=== PATIENT | female | born 1990 | race Caucasian/White ===

== ENCOUNTER → 2023-08-24 12:26 | Outpatient (BNVA) | payer OTHER, SELFPAY | PROVIDERS: Visit Provider Physician Assistant Medical | DX: S00.93XA Contusion of unspecified part of head, initial encounter (principal); S40.011A Contusion of right shoulder, initial encounter; S20.229A Contusion of unspecified back wall of thorax, initial encounter; S46.811A Strain of other muscles, fascia and tendons at shoulder and upper arm level, right arm, initial encounter; W51.XXXA Accidental striking against or bumped into by another person, initial encounter; R51.9 Headache, unspecified | CPT/HCPCS: 73010; 73030; 99203 ==

== ENCOUNTER → 2023-08-27 11:11 | Outpatient (BNVA) | payer OTHER, SELFPAY | PROVIDERS: Visit Provider Physician Assistant Medical | DX: S00.93XA Contusion of unspecified part of head, initial encounter (principal); S46.811A Strain of other muscles, fascia and tendons at shoulder and upper arm level, right arm, initial encounter; R51.9 Headache, unspecified; S40.011A Contusion of right shoulder, initial encounter; S20.229A Contusion of unspecified back wall of thorax, initial encounter; X58.XXXA Exposure to other specified factors, initial encounter | CPT/HCPCS: 99213 ==

== ENCOUNTER → 2023-08-31 14:43 | Outpatient (BNVA) | payer OTHER, SELFPAY | PROVIDERS: PCP Nurse Practitioner Family; Visit Provider Physician Assistant Medical | DX: S00.93XA Contusion of unspecified part of head, initial encounter (principal); R51.9 Headache, unspecified; S46.811A Strain of other muscles, fascia and tendons at shoulder and upper arm level, right arm, initial encounter; S40.011A Contusion of right shoulder, initial encounter; S20.229A Contusion of unspecified back wall of thorax, initial encounter; W51.XXXA Accidental striking against or bumped into by another person, initial encounter | CPT/HCPCS: 99213 ==

== ENCOUNTER → 2023-09-04 11:42 | Outpatient (BNVA) | payer OTHER, SELFPAY | PROVIDERS: PCP Nurse Practitioner Family; Visit Provider Physician Assistant Medical | DX: S00.93XA Contusion of unspecified part of head, initial encounter (principal); R51.9 Headache, unspecified; S46.811A Strain of other muscles, fascia and tendons at shoulder and upper arm level, right arm, initial encounter; S40.011A Contusion of right shoulder, initial encounter; S20.224A Contusion of middle back wall of thorax, initial encounter; W51.XXXA Accidental striking against or bumped into by another person, initial encounter | CPT/HCPCS: 99213 ==

== ENCOUNTER → 2023-09-13 09:39 | Outpatient (BNVA) | payer OTHER, SELFPAY | PROVIDERS: PCP Nurse Practitioner Family; Visit Provider Physician Assistant Medical | DX: S00.93XA Contusion of unspecified part of head, initial encounter (principal); R51.9 Headache, unspecified; S46.811A Strain of other muscles, fascia and tendons at shoulder and upper arm level, right arm, initial encounter; S40.011A Contusion of right shoulder, initial encounter; S20.229A Contusion of unspecified back wall of thorax, initial encounter; W51.XXXA Accidental striking against or bumped into by another person, initial encounter | CPT/HCPCS: 99213 ==

== ENCOUNTER → 2023-09-20 13:10 | Outpatient (BNVA) | payer OTHER, SELFPAY | PROVIDERS: PCP Nurse Practitioner Family; Visit Provider Physician Assistant | DX: S00.93XD Contusion of unspecified part of head, subsequent encounter (principal); S46.811D Strain of other muscles, fascia and tendons at shoulder and upper arm level, right arm, subsequent encounter; S40.011D Contusion of right shoulder, subsequent encounter; S20.229D Contusion of unspecified back wall of thorax, subsequent encounter; W51.XXXD Accidental striking against or bumped into by another person, subsequent encounter | CPT/HCPCS: 99213 ==

== ENCOUNTER 2023-09-26 10:00 | Outpatient (RCR) | payer OTHER, MEDICAID, SELFPAY ==
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
--- NOTE | 2024-02-05 09:43 | MHC.PT.DC ---
[facility] [place] Office [place] Office [place] Office [address] Jolly Jin [address] [phone] F: [phone] F: [phone] F: [phone] F: [phone] Physical Therapy Discharge Report Diagnosis: trapezius strain Date of Surgery: Date of Evaluation: 08/30/23 Date of Discharge: 02/05/24 Treatments to Date: 6 Cancellations to Date: No Shows to Date: Discharge Status: Achieved Goals Independent with HEP Discharge Summary: Pt is a 33 yo female who was referred to PT following injury at work. Pt participated in 6 visits and overall improved her pain level from 8/10 to 3/10, and is I with HEP. Pt in agreement with D/C at this time. Thank you for this referral. Electronically signed by: Dorothy Ramírez PT, DPT Please sign and return to therapist. Thank you for your referral.
== END 2024-02-05 09:44 | disposition home or self-care (01) ==
LOC: HO.PT 10:00
PROVIDERS: PCP Nurse Practitioner Family; Visit Provider Physician Assistant Medical
DX: S06.9XAD Unspecified intracranial injury with loss of consciousness status unknown, subsequent encounter (principal); S46.811D Strain of other muscles, fascia and tendons at shoulder and upper arm level, right arm, subsequent encounter; S20.229D Contusion of unspecified back wall of thorax, subsequent encounter
CPT/HCPCS: 97110; 97140; 97161

== ENCOUNTER → 2023-10-01 09:28 | Outpatient (BNVA) | payer OTHER, SELFPAY | PROVIDERS: PCP Nurse Practitioner Family; Visit Provider Physician Assistant Medical | DX: F07.81 Postconcussional syndrome (principal); R51.9 Headache, unspecified; S46.811D Strain of other muscles, fascia and tendons at shoulder and upper arm level, right arm, subsequent encounter; S40.011D Contusion of right shoulder, subsequent encounter; S20.229D Contusion of unspecified back wall of thorax, subsequent encounter; W51.XXXD Accidental striking against or bumped into by another person, subsequent encounter | CPT/HCPCS: 99213 ==

== ENCOUNTER → 2023-10-22 09:01 | Outpatient (BNVA) | payer OTHER, SELFPAY | PROVIDERS: PCP Nurse Practitioner Family; Visit Provider Physician Assistant Medical | DX: S00.93XD Contusion of unspecified part of head, subsequent encounter (principal); R51.9 Headache, unspecified; S46.811D Strain of other muscles, fascia and tendons at shoulder and upper arm level, right arm, subsequent encounter; S40.011D Contusion of right shoulder, subsequent encounter; S29.012D Strain of muscle and tendon of back wall of thorax, subsequent encounter; W51.XXXD Accidental striking against or bumped into by another person, subsequent encounter | CPT/HCPCS: 99213 ==

== ENCOUNTER 2023-11-05 19:33 | Outpatient (REF) | payer OTHER, SELFPAY ==
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
== END 2023-11-05 19:34 | disposition home or self-care (01) ==
LOC: HO.MRI 19:33
PROVIDERS: PCP Nurse Practitioner Family; Visit Provider Internal Medicine
DX: S40.011A Contusion of right shoulder, initial encounter (principal)
CPT/HCPCS: 73221

== ENCOUNTER → 2023-11-12 09:41 | Outpatient (BNVA) | payer OTHER, SELFPAY | PROVIDERS: PCP Nurse Practitioner Family; Visit Provider Physician Assistant Medical | DX: S00.93XD Contusion of unspecified part of head, subsequent encounter (principal); S46.811D Strain of other muscles, fascia and tendons at shoulder and upper arm level, right arm, subsequent encounter; S40.011D Contusion of right shoulder, subsequent encounter; Y04.2XXD Assault by strike against or bumped into by another person, subsequent encounter; M24.811 Other specific joint derangements of right shoulder, not elsewhere classified; R51.9 Headache, unspecified | CPT/HCPCS: 99213 ==

== ENCOUNTER → 2023-11-16 11:12 | Outpatient (BNVA) | payer OTHER, SELFPAY | PROVIDERS: PCP Nurse Practitioner Family; Visit Provider Physician Assistant Medical | DX: F07.81 Postconcussional syndrome (principal); G43.909 Migraine, unspecified, not intractable, without status migrainosus; S40.011D Contusion of right shoulder, subsequent encounter; W51.XXXD Accidental striking against or bumped into by another person, subsequent encounter; M24.811 Other specific joint derangements of right shoulder, not elsewhere classified | CPT/HCPCS: 99213 ==

== ENCOUNTER → 2023-12-04 09:57 | Outpatient (BNVA) | payer OTHER, SELFPAY | PROVIDERS: PCP Nurse Practitioner Family; Visit Provider Physician Assistant Medical | DX: F07.81 Postconcussional syndrome (principal); G43.909 Migraine, unspecified, not intractable, without status migrainosus; M24.811 Other specific joint derangements of right shoulder, not elsewhere classified | CPT/HCPCS: 99213 ==

== ENCOUNTER 2023-12-11 10:45 | Outpatient (RCR) | payer OTHER, SELFPAY ==
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
== END 2023-12-18 13:33 | disposition home or self-care (01) ==
LOC: HO.SH 10:45
PROVIDERS: PCP Nurse Practitioner Family; Visit Provider Physician Assistant Medical
DX: S06.9XAD Unspecified intracranial injury with loss of consciousness status unknown, subsequent encounter (principal)
CPT/HCPCS: 96125

== ENCOUNTER → 2023-12-24 13:14 | Outpatient (BNVA) | payer OTHER, SELFPAY | PROVIDERS: PCP Nurse Practitioner Family; Visit Provider Physician Assistant Medical | DX: S00.93XD Contusion of unspecified part of head, subsequent encounter (principal); W51.XXXD Accidental striking against or bumped into by another person, subsequent encounter; G43.909 Migraine, unspecified, not intractable, without status migrainosus; M24.811 Other specific joint derangements of right shoulder, not elsewhere classified; M54.2 Cervicalgia | CPT/HCPCS: 99213 ==

== ENCOUNTER → 2024-01-07 13:01 | Outpatient (BNVA) | payer OTHER, SELFPAY | PROVIDERS: PCP Nurse Practitioner Family; Visit Provider Physician Assistant Medical | DX: S00.93XD Contusion of unspecified part of head, subsequent encounter (principal); W51.XXXD Accidental striking against or bumped into by another person, subsequent encounter; G43.909 Migraine, unspecified, not intractable, without status migrainosus; M24.811 Other specific joint derangements of right shoulder, not elsewhere classified; M50.322 Other cervical disc degeneration at C5-C6 level | CPT/HCPCS: 99213 ==

== ENCOUNTER → 2024-02-11 12:52 | Outpatient (BNVA) | payer OTHER, SELFPAY | PROVIDERS: PCP Nurse Practitioner Family; Visit Provider Physician Assistant Medical | DX: M25.511 Pain in right shoulder (principal); S00.93XD Contusion of unspecified part of head, subsequent encounter; S40.011D Contusion of right shoulder, subsequent encounter; S46.811D Strain of other muscles, fascia and tendons at shoulder and upper arm level, right arm, subsequent encounter; W51.XXXD Accidental striking against or bumped into by another person, subsequent encounter; G43.009 Migraine without aura, not intractable, without status migrainosus; M54.2 Cervicalgia | CPT/HCPCS: 99213 ==

== ENCOUNTER 2024-03-03 13:54 | Outpatient (AMB) | payer OTHER, SELFPAY ==
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
[2024-03-03 13:58] VITALS: BP 141/86; PULSE 117; RESP 15; O2SAT 97; BMI 31.2
== END 2024-03-03 14:30 | disposition home or self-care (01) ==
PROVIDERS: PCP Nurse Practitioner Family; Visit Provider Nurse Practitioner Family
DX: M25.511 Pain in right shoulder (principal); M54.2 Cervicalgia; G43.109 Migraine with aura, not intractable, without status migrainosus; M67.911 Unspecified disorder of synovium and tendon, right shoulder
CPT/HCPCS: 99204; G2211

== ENCOUNTER → 2024-03-03 13:54 | Outpatient (BNVA) | payer OTHER, SELFPAY | PROVIDERS: PCP Nurse Practitioner Family; Visit Provider Nurse Practitioner Family | DX: M25.511 Pain in right shoulder (principal); M54.2 Cervicalgia; G43.109 Migraine with aura, not intractable, without status migrainosus; M67.911 Unspecified disorder of synovium and tendon, right shoulder | CPT/HCPCS: 99202 ==

== ENCOUNTER → 2024-03-17 12:52 | Outpatient (BNVA) | payer OTHER, SELFPAY | PROVIDERS: PCP Nurse Practitioner Family; Visit Provider Physician Assistant Medical | DX: F07.81 Postconcussional syndrome (principal); G43.009 Migraine without aura, not intractable, without status migrainosus; M50.322 Other cervical disc degeneration at C5-C6 level; M24.811 Other specific joint derangements of right shoulder, not elsewhere classified | CPT/HCPCS: 99213 ==

== ENCOUNTER → 2024-03-20 09:10 | Outpatient (BNVA) | payer OTHER, SELFPAY | PROVIDERS: PCP Nurse Practitioner Family; Visit Provider Physician Assistant Medical | DX: S00.93XD Contusion of unspecified part of head, subsequent encounter (principal); S40.011D Contusion of right shoulder, subsequent encounter; W51.XXXD Accidental striking against or bumped into by another person, subsequent encounter; M50.322 Other cervical disc degeneration at C5-C6 level; F41.1 Generalized anxiety disorder; G43.009 Migraine without aura, not intractable, without status migrainosus; M24.811 Other specific joint derangements of right shoulder, not elsewhere classified | CPT/HCPCS: 99213 ==

== ENCOUNTER 2024-03-25 14:01 | Outpatient (AMB) | payer OTHER, SELFPAY ==
[2024-03-25 14:02] VITALS: BMI 31.2
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
== END 2024-03-25 14:27 | disposition home or self-care (01) ==
LOC: HO.PMC 14:01
PROVIDERS: PCP Nurse Practitioner Family; Visit Provider Nurse Practitioner Family
DX: M25.511 Pain in right shoulder (principal); M54.2 Cervicalgia; G43.109 Migraine with aura, not intractable, without status migrainosus; M67.911 Unspecified disorder of synovium and tendon, right shoulder; M50.20 Other cervical disc displacement, unspecified cervical region; M47.812 Spondylosis without myelopathy or radiculopathy, cervical region
CPT/HCPCS: 99214; G2211

== ENCOUNTER → 2024-03-25 14:01 | Outpatient (BNVA) | payer OTHER, SELFPAY | PROVIDERS: PCP Nurse Practitioner Family; Visit Provider Nurse Practitioner Family ==

== ENCOUNTER → 2024-04-17 09:48 | Outpatient (BNVA) | payer OTHER, SELFPAY | PROVIDERS: PCP Nurse Practitioner Family; Visit Provider Physician Assistant Medical | DX: S00.93XD Contusion of unspecified part of head, subsequent encounter (principal); W51.XXXD Accidental striking against or bumped into by another person, subsequent encounter; G43.009 Migraine without aura, not intractable, without status migrainosus; M50.322 Other cervical disc degeneration at C5-C6 level; M24.811 Other specific joint derangements of right shoulder, not elsewhere classified; F41.1 Generalized anxiety disorder; F43.0 Acute stress reaction | CPT/HCPCS: 99213 ==

== ENCOUNTER 2024-05-08 09:52 | Outpatient (AMB) | payer OTHER, SELFPAY ==
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
[2024-05-08 10:00] VITALS: BP 123/70; PULSE 65; O2SAT 99; BMI 28.9
== END 2024-05-08 10:27 | disposition home or self-care (01) ==
PROVIDERS: PCP Nurse Practitioner Family; Visit Provider Nurse Practitioner Family
DX: M47.812 Spondylosis without myelopathy or radiculopathy, cervical region (principal); M50.10 Cervical disc disorder with radiculopathy, unspecified cervical region
CPT/HCPCS: 99214; G2211

== ENCOUNTER → 2024-05-08 09:52 | Outpatient (BNVA) | payer OTHER, SELFPAY | PROVIDERS: PCP Nurse Practitioner Family; Visit Provider Nurse Practitioner Family | DX: M54.2 Cervicalgia (principal); M47.812 Spondylosis without myelopathy or radiculopathy, cervical region; M50.10 Cervical disc disorder with radiculopathy, unspecified cervical region | CPT/HCPCS: 99212 ==

== ENCOUNTER → 2024-05-19 10:03 | Outpatient (BNVA) | payer OTHER, SELFPAY | PROVIDERS: PCP Nurse Practitioner Family; Visit Provider Physician Assistant Medical | DX: S00.93XD Contusion of unspecified part of head, subsequent encounter (principal); S40.011D Contusion of right shoulder, subsequent encounter; W51.XXXD Accidental striking against or bumped into by another person, subsequent encounter; G43.109 Migraine with aura, not intractable, without status migrainosus; M24.811 Other specific joint derangements of right shoulder, not elsewhere classified; M50.322 Other cervical disc degeneration at C5-C6 level | CPT/HCPCS: 99213 ==

== ENCOUNTER 2024-05-29 07:36 | Outpatient (REF) | payer OTHER, SELFPAY ==
--- NOTE | ~2024-05-29 | FL_ITS ---
EXAMINATION: FL GUIDANCE ONLY HISTORY: M50.10 - Cervical disc disorder with radiculopathy, unspecified cervical... COMPARISON: None available. TECHNIQUE: Fluoroscopy time: 0.1 minutes. Cumulative Dose: 0.371 mGy. DAP: 0.72337 mGym2 Images: 2. FINDINGS: Images demonstrate a needle and contrast material in the left neck. FL/FL guidance in treatment room IMPRESSION: Fluoroscopy during procedure. Please see procedure report for additional information. Electronically signed by: Larry Thurman MD 05/29/2024 12:41 PM [facility]
== END 2024-05-29 07:37 | disposition home or self-care (01) ==
LOC: CF 07:36
PROVIDERS: Visit Provider Internal Medicine
DX: M50.10 Cervical disc disorder with radiculopathy, unspecified cervical region (principal)
CPT/HCPCS: 62321; J1100; J2003; Q9967

== ENCOUNTER 2024-05-29 10:58 | Outpatient (AMB) | payer OTHER, SELFPAY ==
[2024-05-29 11:09] VITALS: BP 150/77; PULSE 100; O2SAT 99; BMI 26.7
--- NOTE | 2024-05-29 11:09 | MHC.OFFVIS ---
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 Set Up And Lay Out Required: No Allergies Sulfa (Sulfonamide Antibiotics) Adverse Reaction (Severe, Verified 05/29/24 11:10) Rash Medication List - Last Reconciled 05/29/24 by Nancy Hernandez, BAND SALVAGER [id number] 50-325-40 mg 1 tab PO Q6H PRN dextroamphetamine-amphetamine 20 mg ER (Adderall XR) caps PO dextroamphetamine-amphetamine 30 mg ER (Adderall XR) 40 mg PO DAILY dextroamphetamine-amphetamine 5 mg (Adderall) 5 mg PO DAILY diclofenac sodium 1% (Arthritis Pain (diclofenac)) 4 grams topical QID PRN duloxetine 60 mg (2 x 30 mg) PO DAILY lidocaine 5% 1 patch topically 1 patch daily q 12 hours; leave on most painful area for up to 12 hrs lorazepam (Ativan) 1 mg PO ONCE magnesium oxide 400 mg PO DAILY meloxicam 15 mg PO DAILY methocarbamol 500 mg PO TID PRN 30 days riboflavin (vitamin B2) 400 mg (4 x 100 mg) PO DAILY HPI HPI Left C6-C7 interlaminar LAZARO/ Ativan: Details: Patient presents for scheduled procedure. Denies any recent cough, cold, infection, fever or other significant changes in medical history since last office visit. [facility] Medical History Anemia Myofascial neck pain Cervicalgia Right shoulder pain Migraine headache with aura Tubal ectopic ADHD Surgical History History of carpal tunnel release (~2017) History of appendectomy History of Social History Household Members: Children Housing: Apartment Alcohol intake: current Alcohol intake frequency: 3 or more drinks per day Alcohol type: beer Tobacco use type: Cigarette Cigarette Packs Per Day: 0.5 Physical Exam Vital Signs: Last Vital Signs Pulse 100 05/29/24 11:09 BP 150/77 H 02/13/25 11:09 Pulse Ox 99 05/29/24 11:09 Oxygen Delivery Method Room Air 05/29/24 11:09 BMI result Body Mass Index 26.7 Office Procedures AMB Joint Injection/Aspiration Joint Injection/Aspiration Details: Interlaminar epidural steroid injection, C6/7, Left parasaggital After obtaining written consent, pre-procedure blood pressure and heart rate were stable and recorded in the nursing record. The patient was placed in the prone position. The cervicothoracic area was widely prepped with chloraprep and draped in sterile fashion. Fluoroscopic guidance was used to identify the desired interlaminar space and for needle placement. Subcutaneous 0.5% lidocaine was used to anesthetize the skin overlying the target. A 20-gauge Clemente needle was advanced to the epidural space using loss of resistance to contrast technique under fluoroscopic AP and contralateral oblique views. There was no evidence of heme or CSF and no paresthesias were elicited with needle placement. Confirmation of epidural needle placement was performed with 1cc of omnipaque 180. Next 3 ml 0.5% lidocaine mixed with 10 mg dexamethasone was administered epidurally with no pain elicited on injection. The needle tract tubing was then cleared with 1 ml of 0.5% lidocaine. The needle was removed, skin cleansed and a sterile bandage was applied. The patient tolerated the procedure well and no complications were encountered. Following the procedure the patient's vital signs were stable. The patient was discharged home in good condition with post-procedural instructions. Time Out: Immediately prior to the procedure, the following was verbally confirmed that there is a signed consent form and that the correct patient, planned procedure, site and side are consistent with documentation and that necessary equipment and/or blood products are available prior to the start of the case. Complications: none EBL: <2 cc Coding 87738 - Cervical Epidural/Interlaminar with fluoroscopy Procedure code (CPT) selection complete Assessment & Plan Assessment & Plan (1) Herniation of cervical intervertebral disc with radiculopathy: Code(s): M50.10 - Cervical disc disorder with radiculopathy, unspecified cervical region Category: Medical Plan Patient is status post left C6-7 LAZARO. Patient tolerated procedure well and was discharged home in stable condition with discharge instructions. All questions were answered. We will follow-up via telephone or in clinic to assess response to therapy. A follow-up appointment was made during today's visit. Orders: Orders FL guidance in treatment room Today M50.10 - Cervical disc disorder with radiculopathy, unspecified cervical region Medications: New lorazepam (Ativan) Take 30 minutes prior to arrival to procedure 1 mg PO ONCE 1 tab 0RF anxiety Coding Level of Care Code Procedure Only Diagnoses Herniation of cervical intervertebral disc with radiculopathy M50.10 CPT Codes Coding - Joint 10: 56605 - Cervical Epidural/Interlaminar with fluoroscopy ([id number])
== END 2024-05-29 11:44 | disposition home or self-care (01) ==
LOC: HO.PMCPRC 10:58
PROVIDERS: PCP Nurse Practitioner Family; Visit Provider Internal Medicine
DX: M50.123 Cervical disc disorder at C6-C7 level with radiculopathy (principal)
CPT/HCPCS: 62321

== ENCOUNTER → 2024-06-09 09:58 | Outpatient (BNVA) | payer OTHER, SELFPAY | PROVIDERS: PCP Nurse Practitioner Family; Visit Provider Physician Assistant Medical | DX: F07.81 Postconcussional syndrome (principal); G43.909 Migraine, unspecified, not intractable, without status migrainosus; M50.322 Other cervical disc degeneration at C5-C6 level; S40.011D Contusion of right shoulder, subsequent encounter; S46.811D Strain of other muscles, fascia and tendons at shoulder and upper arm level, right arm, subsequent encounter; W51.XXXD Accidental striking against or bumped into by another person, subsequent encounter; M24.811 Other specific joint derangements of right shoulder, not elsewhere classified | CPT/HCPCS: 99213 ==

== ENCOUNTER 2024-06-26 11:02 | Outpatient (AMB) | payer OTHER, SELFPAY ==
[2024-06-26 11:14] VITALS: BP 135/75; PULSE 76; O2SAT 100; BMI 29.9
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
== END 2024-06-26 11:53 | disposition home or self-care (01) ==
LOC: HO.PMC 11:03
PROVIDERS: PCP Nurse Practitioner Family; Visit Provider Nurse Practitioner Family
DX: M50.10 Cervical disc disorder with radiculopathy, unspecified cervical region (principal); M25.511 Pain in right shoulder; M47.812 Spondylosis without myelopathy or radiculopathy, cervical region
CPT/HCPCS: 99213; G2211

== ENCOUNTER → 2024-06-26 11:02 | Outpatient (BNVA) | payer OTHER, SELFPAY | PROVIDERS: PCP Nurse Practitioner Family; Visit Provider Nurse Practitioner Family | DX: M50.10 Cervical disc disorder with radiculopathy, unspecified cervical region (principal); M25.511 Pain in right shoulder; M47.812 Spondylosis without myelopathy or radiculopathy, cervical region; Z98.890 Other specified postprocedural states | CPT/HCPCS: 99212 ==

== ENCOUNTER → 2024-07-29 09:46 | Outpatient (BNVA) | payer OTHER, SELFPAY | PROVIDERS: PCP Nurse Practitioner Family; Visit Provider Physician Assistant Medical | DX: S00.93XD Contusion of unspecified part of head, subsequent encounter (principal); S40.011D Contusion of right shoulder, subsequent encounter; S46.811D Strain of other muscles, fascia and tendons at shoulder and upper arm level, right arm, subsequent encounter; W51.XXXD Accidental striking against or bumped into by another person, subsequent encounter; M54.2 Cervicalgia | CPT/HCPCS: 99213 ==

== ENCOUNTER → 2024-08-25 10:06 | Outpatient (BNVA) | payer OTHER, SELFPAY | PROVIDERS: PCP Nurse Practitioner Family; Visit Provider Physician Assistant Medical | DX: S00.93XD Contusion of unspecified part of head, subsequent encounter (principal); M54.2 Cervicalgia; S46.911D Strain of unspecified muscle, fascia and tendon at shoulder and upper arm level, right arm, subsequent encounter; S46.811D Strain of other muscles, fascia and tendons at shoulder and upper arm level, right arm, subsequent encounter; W51.XXXD Accidental striking against or bumped into by another person, subsequent encounter; G44.86 Cervicogenic headache; F32.A Depression, unspecified | CPT/HCPCS: 99213 ==

== ENCOUNTER 2024-09-12 09:00 | Outpatient (RCR) | payer OTHER, SELFPAY ==
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
== END 2024-11-28 16:15 | disposition home or self-care (01) ==
LOC: HO.PT 09:00
PROVIDERS: PCP Nurse Practitioner Family; Visit Provider Physician Assistant Medical
DX: M54.2 Cervicalgia (principal)
CPT/HCPCS: 97110; 97140; 97162; 97530; 97535

== ENCOUNTER → 2024-10-07 08:08 | Outpatient (BNVA) | payer OTHER, SELFPAY | PROVIDERS: PCP Nurse Practitioner Family; Visit Provider Physician Assistant Medical | DX: S00.93XD Contusion of unspecified part of head, subsequent encounter (principal); S46.811D Strain of other muscles, fascia and tendons at shoulder and upper arm level, right arm, subsequent encounter; W51.XXXD Accidental striking against or bumped into by another person, subsequent encounter; M54.2 Cervicalgia | CPT/HCPCS: 99213 ==

== ENCOUNTER → 2024-11-20 08:58 | Outpatient (BNVA) | payer OTHER, SELFPAY | PROVIDERS: PCP Nurse Practitioner Family; Visit Provider Physician Assistant Medical | DX: S00.93XD Contusion of unspecified part of head, subsequent encounter (principal); S46.911D Strain of unspecified muscle, fascia and tendon at shoulder and upper arm level, right arm, subsequent encounter; S46.811D Strain of other muscles, fascia and tendons at shoulder and upper arm level, right arm, subsequent encounter; W51.XXXD Accidental striking against or bumped into by another person, subsequent encounter; M54.2 Cervicalgia | CPT/HCPCS: 99213 ==

== ENCOUNTER 2024-11-27 10:13 | Outpatient (AMB) | payer OTHER, SELFPAY ==
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
[2024-11-27 10:31] VITALS: BP 133/74; PULSE 90; O2SAT 100; BMI 27.0
--- OUTSIDE RECORDS SUMMARY | 2024-11-27 11:18 | XMS_ITS | Encounter Summary ---
Author Organization [facility] Address [address] [place] [address] Phone Care Team Providers Care Marker Maker Name Role Phone Shukri Ramirez MD Primary Care Provider [phone] Shukri Ramirez MD Unavailable [phone] Fran Bauer CANCER CENTER DIRECTOR Unavailable [phone] Fran Bauer CANCER CENTER DIRECTOR Unavailable [phone] Encounter Details Date Type Department Care Team (Late Contact Info) Description 01/13/2018 Procedure Pass OR Admitting Dept - Virtual Department [address] [place] [address] Social History Tobacco Use Types Packs/Day Years Used Date Smoking Tobacco: Former Smokeless Tobacco: Never Alcohol Use Standard Drinks/Week Comments No 0 (1 standard drink = 0.6 oz pur e alcohol) none with Comments No Sex and Gender Information Value Date Recorded Sex Assigned at Female 04/23/2017 9:38 AM EST Legal Sex Female 9:04 PM EDT Gender Identity Female 04/23/2017 9:38 AM EST Sexual Orientation Straight 04/23/2017 9: 38 AM EST 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 Not on file Not on lois e documented as of this encounter Plan of Treatment Upcoming Encounters Date Type Department Care Team (Late Contact Info) Description 03/20/2025 1:30 PM EST Office Visit [facility] Neurology [address] [place] [address] Eliezer Wood MD 22 [facility], [address] [place] [address] [email or web address] documented as of this encounter Visit Diagnoses Not on filedocumented in this encounter Additional Health Concerns Infection Onset Date Last Indicated Resolved Time CoV-Risk 12/18/2019 12/19/2019 01/01/2020 1:24 AM EDT CoV-Risk 05/26/2021 05/26/2021 06/05/2021 1:23 AM EST documented as of this encounter Care Teams Marker Maker Relationship Specialty Start Date End Date Shukri Ramirez MD [email or web address] PCP - General Internal Medicine 02/27/17 Shukri Ramirez MD [address] [place] [address] [email or web address] Insurance Assigned Provider 08/18/17 12/23/22 Fran Bauer [address] [address] Orthopedic Surgeon 07/04/24 07/31/24 Fran Bauer [address] [address] [employer] Social Work 08/25/24 documented as of this encounter Additional Source Comments The information contained in this document represents components of the legal health record. It is not the complete legal health record.[facility]
== END 2024-11-27 10:40 | disposition home or self-care (01) ==
LOC: HO.PMC 10:26
PROVIDERS: PCP Nurse Practitioner Family; Visit Provider Nurse Practitioner Family
DX: M54.2 Cervicalgia (principal); G44.86 Cervicogenic headache; M47.812 Spondylosis without myelopathy or radiculopathy, cervical region
CPT/HCPCS: 99214; G2211

== ENCOUNTER → 2024-11-27 10:13 | Outpatient (BNVA) | payer OTHER, SELFPAY | PROVIDERS: PCP Nurse Practitioner Family; Visit Provider Nurse Practitioner Family | DX: M54.2 Cervicalgia (principal); G44.86 Cervicogenic headache; M47.812 Spondylosis without myelopathy or radiculopathy, cervical region | CPT/HCPCS: 99212 ==

== ENCOUNTER 2024-12-25 06:22 | Outpatient (REF) | payer OTHER, SELFPAY ==
--- NOTE | ~2024-12-25 | FL_ITS ---
EXAMINATION: FL GUIDANCE ONLY HISTORY: M47.812 - Spondylosis without myelopathy or radiculopathy, cervical region COMPARISON: None available. TECHNIQUE: Fluoroscopy time: 0.1 minute. Cumulative Dose: 0.53 mGy. DAP: 0.28028 mGym2 Images: 2. FINDINGS: Fluoroscopic spot films of the cervical spine demonstrate needles and contrast material in place at 3 levels. FL/FL guidance in treatment room IMPRESSION: Fluoroscopy during procedure. Please see procedure report for additional information. Electronically signed by: Larry Thurman MD 12/25/2024 01:14 PM EDT
--- OUTSIDE RECORDS SUMMARY | 2024-12-25 06:24 | XMS_ITS | Encounter Summary ---
Author Organization [facility] Address [address] [place] [address] Phone Care Team Providers Care Lpn Instructor Name Role Phone Shukri Ramirez MD Primary Care Provider [phone] Edmundo Joseph MD Unavailable [phone] Shukri Ramirez MD Unavailable [phone] Fran Bauer BOOT REPAIRER Unavailable [phone] Fran Bauer Unavailable [phone] Encounter Details Date Type Department Care Team (Late Contact Info) Description 03/26/2017 Procedure Pass [facility] L&D Procedures [address] [place] [address] Social History Tobacco Use Types Packs/Day Years [...] 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 documented as of this encounter Visit Diagnoses Not on filedocumented in this encounter Additional Health Concerns Infection Onset Date Last Indicated Resolved Time CoV-Risk 12/18/2019 12/19/2019 01/01/2020 1:24 AM EDT CoV-Risk 05/26/2021 05/26/2021 06/05/2021 1:23 AM EST documented as of this encounter Care Teams Lpn Instructor Relationship Specialty Start Date End Date Shukri Ramirez MD [email or web address] PCP - General Internal Medicine 02/27/17 Edmundo Joseph MD [address] [place] [address] [email or web address] Insurance Assigned Provider 07/14/17 08/18/17 Shukri Ramirez MD [address] [place] [address] [email or web address] Insurance Assigned Provider 08/18/17 12/23/22 Fran Bauer [address] [address] [email or web address] Window/Distribution Clerk 07/04/24 07/31/24 Fran Bauer [address] [address] [email or web address] Social Work 08/25/24 documented as of this encounter Additional Source Comments The information contained in this document represents components of the legal health record. It is not the complete legal health record.[facility]
--- OUTSIDE RECORDS SUMMARY | 2024-12-25 06:24 | XMS_ITS | Encounter Summary ---
Author Organization [facility] Address [address] [place] [address] Phone Care Team Providers Care System Development Engineer Name Role Phone Shukri Ramirez MD Primary Care Provider [phone] Shukri Ramirez MD Unavailable [phone] Fran Bauer ADULT REMEDIAL EDUCATION INSTRUCTOR Unavailable [phone] Fran Bauer ADULT REMEDIAL EDUCATION INSTRUCTOR Unavailable [phone] Encounter Details Date Type Department Care Team (Late Contact Info) Description 01/13/2018 Procedure Pass OR Admitting Dept - Virtual Department [address] [place] [address] Social History Tobacco Use Types Packs/Day Years [...] 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 file Not on lois e documented as of this encounter Plan of Treatment Upcoming Encounters Date Type Department Care Team (Late Contact Info) Description 03/20/2025 1:30 PM EST Office Visit [facility] Neurology [address] [place] [address] Eliezer Wood MD 22 [facility], [address] [place] [address] [email or web address] documented as of this encounter Visit Diagnoses Not on filedocumented in this encounter Additional Health Concerns Infection Onset Date Last Indicated Resolved Time CoV-Risk 12/18/2019 12/19/2019 01/01/2020 1:24 AM EDT CoV-Risk 05/26/2021 05/26/2021 06/05/2021 1:23 AM EST documented as of this encounter Care Teams System Development Engineer Relationship Specialty Start Date End Date Shukri Ramirez MD [email or web address] PCP - General Internal Medicine 02/27/17 Shukri Ramirez MD [address] [place] [address] [email or web address] Insurance Assigned Provider 08/18/17 12/23/22 Fran Bauer [address] [address] Dewatering Filtering Supervisor 07/04/24 07/31/24 Fran Bauer [address] [address] iC[employer] Social Work 08/25/24 documented as of this encounter Additional Source Comments The information contained in this document represents components of the legal health record. It is not the complete legal health record.[facility]
--- OUTSIDE RECORDS SUMMARY | 2024-12-25 06:24 | XMS_ITS | Encounter Summary ---
Author Organization [facility] Address [address] [place] [address] [place] [address] Phone Care Team Providers Care Seafood Harvester Name Role Phone Shukri Ramirez MD Primary Care Provider [phone] Shukri Ramirez MD Unavailable [phone] Fran Bauer PIGGERY WORKER Unavailable [phone] Fran Bauer PIGGERY WORKER Unavailable [phone] Encounter Details Date Type Department Care Team (Late st Contact Info) Description 06/23/2020 Procedure Pass [facility] L&D Procedures [address] [place] [address] Social History Tobacco Use Types Packs/Day Years Used Date Smoking Tobacco: Former Cigarettes Q uit: 03/2016 Smokeless Tobacco: Never Alcohol Use Standard Drinks/Week Comments Not Currently 0 (1 standard drink = 0.6 oz pur e alcohol) none with Comments No Sex and Gender Information Value Date Recorded Sex Assigned at Female 04/23/2017 9:38 AM EST Legal Sex Female 9:04 PM EDT Gender Identity Female 04/23/2017 9:38 AM EST Sexual Orientation Straight 04/23/2017 9: 38 AM EST 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 Wish to be (Past 1 Month) No 06/23/2020 7:11 AM Trudi Preston RN 2. Non-Specific Active Suicidal Thoughts (Past 1 Month) No 06/23/2020 7:11 AM Trudi Prseton RN 6. Suicidal Behavior (Lifetime) No 06/23/2020 7:11 AM Trudi Preston RN documented as of this encounter Plan of Treatment Upcoming Encounters Date Type Department Care Team (Late st Contact Info) Description 03/20/2025 1:30 PM EST Office Visit [facility] Neurology [address] [place] [address] Eliezer Wood MD [address] [place] [address], [address] [place] [address] [email or web address] documented as of this encounter Visit Diagnoses Not on filedocumented in this encounter Additional Health Concerns Infection Onset Date Last Indicated Resolved Time CoV-Risk 05/26/2021 05/26/2021 06/05/2021 1:23 AM EST documented as of this encounter Care Teams Seafood Harvester Relationship Specialty Start Date End Date Shukri Ramirez MD PCP - General Internal Medicine 02/27/17 Shukri Ramirez MD [address] [place] [address] Insurance Assigned Provider 08/18/17 12/23/22 Fran Bauer LICSW [address] [place] [address] [email or web address] Program/Music Director 07/04/24 07/31/24 Fran Bauer, PIGGERY WORKER [address] [place] [address] [facility] 08/25/24 documented as of this encounter Additional Source Comments The information contained in this document represents components of the legal health record. It is not the complete legal health record.[facility]
--- OUTSIDE RECORDS SUMMARY | 2024-12-25 06:24 | XMS_ITS | Encounter Summary ---
Author Organization [facility] Address [address] [place] [phone] Phone Care Team Providers Care Muffler Tender Name Role Phone Shukri Ramirez MD Primary Care Provider [phone] Shukri Ramirez MD Unavailable [phone] Fran Bauer AQUACULTURE FARMER Unavailable [phone] Fran Bauer AQUACULTURE FARMER Unavailable [phone] Encounter Details Date Type Department Care Team (Late Contact Info) Description 04/11/2019 Procedure Pass OR Admitting Dept - Virtual Department [address] [place] [id number] Social History Tobacco Use Types Packs/Day Years Used Date Smoking Tobacco: Former Smokeless Tobacco: Never Alcohol Use Standard Drinks/Week Comments No 0 (1 standard drink = 0.6 oz pur e alcohol) none with Comments Yes Sex and Gender Information Value Date Recorded Sex Assigned at Female 04/23/2017 9:38 AM EST Legal Sex Female 9:04 PM EDT Gender Identity Female 04/23/2017 9:38 AM EST Sexual Orientation Straight 04/23/2017 9: 38 AM EST 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 on file Not on file Not on lois e documented as of this encounter Plan of Treatment Upcoming Encounters Date Type Department Care Team (Late Contact Info) Description 03/20/2025 1:30 PM EST Office Visit [facility] Neurology [address] [place] [address] Eliezer Wood MD [address] [facility], [address] [place] [address] [email or web address] documented as of this encounter Visit Diagnoses Not on filedocumented in this encounter Additional Health Concerns Infection Onset Date Last Indicated Resolved Time CoV-Risk 12/18/2019 12/19/2019 01/01/2020 1:24 AM EDT CoV-Risk 05/26/2021 05/26/2021 06/05/2021 1:23 AM EST documented as of this encounter Care Teams Muffler Tender Relationship Specialty Start Date End Date Shukri Ramirez MD [email or web address] PCP - General Internal Medicine 02/27/17 Shukri Ramirez MD [address] [place] [id number] [email or web address] Insurance Assigned Provider 08/18/17 12/23/22 Fran Bauer [address] [address] [employer] 07/04/24 07/31/24 Fran Bauer [address] [address] [employer] Social Work 08/25/24 documented as of this encounter Additional Source Comments The information contained in this document represents components of the legal health record. It is not the complete legal health record.[facility]
--- OUTSIDE RECORDS SUMMARY | 2024-12-25 06:24 | XMS_ITS | Encounter Summary ---
Author Organization [facility] Address [address] [place] [address] [place] [address] Phone Care Team Providers Care Brokerage Coordinator Name Role Phone Shukri Ramirez MD Primary Care Provider [phone] Shukri Ramirez MD Unavailable [phone] Fran Bauer BIOPSYCHOLOGIST Unavailable [phone] Fran Bauer BIOPSYCHOLOGIST Unavailable [phone] Encounter Details Date Type Department Care Team (Late st Contact Info) Description 01/13/2018 Procedure Pass 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 Not on file Not on lois e documented as of this encounter Plan of Treatment Upcoming Encounters Date Type Department Care Team (Late st Contact Info) Description 03/20/2025 1:30 PM EST Office Visit [facility] Neurology [address] [place] [address] Eliezer Wood MD 22 [facility], [address] [place] [address] [email or web address] documented as of this encounter Visit Diagnoses Not on filedocumented in this encounter Additional Health Concerns Infection Onset Date Last Indicated Resolved Time CoV-Risk 12/18/2019 12/19/2019 01/01/2020 1:24 AM EDT CoV-Risk 05/26/2021 05/26/2021 06/05/2021 1:23 AM EST documented as of this encounter Care Teams Brokerage Coordinator Relationship Specialty Start Date End Date Shukri Ramirez MD [email or web address] PCP - General Internal Medicine 02/27/17 Shukri Ramirez MD [address] [place] [phone] Insurance Assigned Provider 08/18/17 12/23/22 Fran Bauer [address] [address] Transition Nurse 07/04/24 07/31/24 Fran Bauer [address] [address] [employer] Social Work 08/25/24 documented as of this encounter Additional Source Comments The information contained in this document represents components of the legal health record. It is not the complete legal health record.[facility]
--- OUTSIDE RECORDS SUMMARY | 2024-12-25 06:24 | XMS_ITS | Clinical Summary ---
Author Organization [facility] Address [address] [place] [phone] Phone Care Team Providers Care Food Demonstrator Name Role Phone Shukri Ramirez MD Primary Care Provider [phone] Fran Bauer ANTIQUE FINISHER Unavailable [phone] Allergies Active Allergy Reactions Criticality Noted Date Comments Sulfa (Sulfonamide Antibiotics) Rash Low 02/14 Medications cetirizine (ZYRTEC) 10 MG tablet Take 10 mg by mouth daily. Active ibuprofen (ADVIL,MOTRIN) 600 MG tablet Take 1 tablet (600 mg total) by mouth every 6 (six) hours. X 2 days then Q6 hours prn 40 tablet 1 06/24/2020 Active ADDERALL XR 20 mg 24 hr capsule Take 20 mg by mouth 2 (two) times a day. 01/03/2022 Active dextroamphetami ne-amphetamine (ADDERALL) 5 mg Tab TAKE 1 TABLET BY MOUTH EVERY DAY AT NOON FOR 14 DAYS 01/17/2022 Active ferrous sulfate 325 mg (65 mg [place] iron) tablet Take 325 mg by mouth daily with breakfast. 08/20/2024 Active lurasidone (LATUDA) 40 mg tablet Take 40 mg by mouth daily with dinner. 09/15/2024 Active propranoloL (INDERAL LA) 60 mg 24 hr capsule Take 60 mg by mouth daily. 09/17/2024 Active cyanocobalamin, vitamin B-12, (VITAMIN B-12 INJ) Inject as directed every 30 (thirty) days. Active Active Problems Patient Care Coordination No te Formatting of this note migh t be different from the original. Patient is high risk for these reasons: Multiple health conditions; housing stressors. Living Situation: Patient is currently staying with her children at her sister's place in [place]. Some of the children stay part-time at their father's house down the street. Patient is in process of screening for public family housing. Functional Status (ADL's/iADLs): Independent. Family/Social Supports: Identifies supportive sister, friend, and boyfriend. Goals of Care (HCP/Molst): Has HCP on file in [facility] and [facility]. Community Supports (e.g. VNA, DME Vendors, Elder Services): [place] presc[place] [facility] Transportation: Friends and family provide help with rides. Medication Management System/Specialized Pharmacy Needs: Picks up and manages medications independently. 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 Has SNAP benefits. Other Supports and Care Needs: Stable housing. Problem Noted Date Diagnosed Date ADHD (attention deficit hyperactivity disorder) 02/08/2022 Pelvic pain 01/16/2022 Overview (02/08/2022): Right sided. Normal ovaries on US. Uterus with some findings suggestive of adenomyosis. During C/S, noted to have increased pelvic venous congestion on R. Discussed options for hormonal manipulation, laparoscopy, hysterectomy. She will consider. Assessment & Plan (01/16/2022 12:20 PM EDT): Chronic problem that is getting worse over time. Recommend updated pelvic US (ordered). Discussed intra op finding of dilated vessels in the right adnexa - unclear clinical significance. Briefly discussed ovulatory suppression with hormonal contraception. Barbara strongly wishes to avoid this option. She has an annual scheduled later this month - recommend changing this appointment to a follow up visit to discuss findings and plan of care. BMI 40.0-44.9, adult 06/23/2020 Overview (06/23/2020): Lovenox PP for DVT prophylaxis Anxiety 10/31/2019 Overview (10/31/2019): Using venlafaxine prescribed by PCP She has life stresses in her family Counseling done; she can consider taper with PCP if desires Migraine 07/16/2017 Resolved Problems Problem Noted Date Diagnosed Date Resolved Date Normal , unspecified trimester 06/23/2020 08/03/2020 Hyperemesis gravidarum 11/28/201901/19 Overview (11/28/2019): Responded to dose of reglan and IV fluids Request for sterilization 10/31/2019 Overview (05/04/2020): Requests on 10/31/19 for tubal ligation with [facility] consent signed 05/04/2020 Assessment & Plan (02/11/2020 4:15 PM EDT): Will sign [employer] papers at next visit. Supervision of other normal , antepartum 10/31/2019 08/03/2020 Overview (05/31/2020): MD Cantrell OB-CMI score has been filled out for this encounter. Rh NEG- rhogam at 7 weeks for bleeding and at 28 weeks RAP GC/Chlam neg PAP 07/2017 normal Tdap * Flu done Hgb 12.8 GTT 77 28 wk Repeat RPR not done GBS * PPBC TL [facility] signed 05/04/20 screening normal first trimester screen/AFP Assessment & Plan (05/21/2020 4:53 PM EST): She notes good movement. She denies any vaginal bleeding, leakage of fluid or regular contractions. However, she does notice pain in and on the right side of her abdomen which is pain that she had even prior to the . She has had this intermittent pain since her last . She has no other systemic symptoms including nausea, vomiting, fevers or chills. She had a previous work-up for this pain including imaging studies which were negative. I explained at that time and today that it could very well be related to scar tissue. She was instructed to call us if she has any symptoms suggestive of labor. Assessment & Plan (04/21/2020 6:08 PM EST): She notes good movement. She denies any vaginal bleeding, LOF or regular contractions. She notes that she is much more comfortable with this than with her previous pregnancies. Otherwise, she is doing fine. She plans on Tdap at the next visit. Assessment & Plan (02/11/2020 4:15 PM EDT): She is feeling the baby move. She denies any vaginal bleeding or LOF. Overall, she is doing well. Encounter for prophylactic a dministration of RhoGAM 04/19/2019 05/06/2019 Rh negative state in antepar bonnie period, first trimester 04/10/2019 05/06/2019 Assessment & Plan (04/10/2019 6:01 PM EST): Reports receiving Rhogam 5 days ago Irregular menses 01/21/2018 05/06/2019 Assessment & Plan (01/21/2018 11:48 AM EDT): Will try levonorgestrel pill as recalls doing well on same in past. If needed could try 35mcg pill in future if breakthrough bleeding persists. Advised trial for 3 mos and if btb not resolving RTO for further evaluation and alternatives. Due for routine exam in 07/2018 Appendicitis 01/14/2018 01/22/2018 Appendicitis 01/13/2018 01/14/2018 Previous section 07/16/2017 Overview (05/04/2020): Plans for repeat C/S; case scheduled Assessment & Plan (05/21/2020 4:54 PM EST): Repeat with tubal plan. Tubal papers were already signed. Assessment & Plan (04/21/2020 6:08 PM EST): Her repeat is already been scheduled and she is planning a tubal at the same time in [facility] papers already been signed. Assessment & Plan (02/11/2020 4:16 PM EDT): Will request date for at next visit. Postoperative abdominal pain 04/12/2017 07/16/2017 Overview (04/20/2017): There is no clinical evidence of infection Appears more consistent with normal healing process Assessment & Plan (04/20/2017 8:55 PM EST): Consulted with Dr Wilkes - we discussed options for this patient - continued decreased activity and ibuprofen 600 mg q 6 hrs around the clock or considering a course of antibiotics. Considering that there is little evidence of endometritis, will hold of on antibiotics at this time. Discussed with Barbara and she will take Ibuprofen 600 mg q 6 hrs Counseled to call with fever/chills, severe nauesea/vomiting, persistent pain/tenderness Return in 1 wk for reeval Assessment & Plan (04/12/2017 3:05 PM EST): Reduce activity Wear abdominal binder Follow up in 1 wk High-risk in third trimester 03/21/2017 07/16/2017 Rh negative state in antepartum period 02/23/2017 07/16/2017 Assessment & Plan (02/23/2017 4:22 PM EST): Rhogam given 01/15/17 Will need rhogam work up PP Previous delivery a ffecting 02/23/2017 07/16/2017 Assessment & Plan (02/23/2017 4:22 PM EST): Desires repeat History of shoulder dystocia in prior , currently 02/23/2017 07/16/2017 Assessment & Plan (03/26/2017 6:14 AM EST): Repeat C sectionplanned Assessment & Plan (02/23/2017 4:23 PM EST): Has opted for delivery Encounters Date Type Department Care Team Description 12/18/2024 Patient Outreach [facility] [address] [place] [address] Fran Bauer LICSW iCMP Care Plan Update (iCMP Care Plan Update) 12/03/2024 Patient Outreach [facility] [address] [place] [phone] Fran Bauer LICSW iCMP Care Plan Update (iCMP Care Plan Update); Care Coordination (iCMP Full Service Vending Driver Outreach) 11/18/2024 Patient Outreach [facility] [address] [place] [phone] Fran Bauer LICSW iCMP Care Plan Update (iCMP Care Plan Update); Care Coordination (iCMP Full Service Vending Driver Outreach) 11/04/2024 Patient Outreach [facility] [address] [place] [phone] Fran Bauer LICSW iCMP Care Plan Update (iCMP Care Plan Update); Care Coordination (iCMP Full Service Vending Driver Outreach) 10/28/2024 Patient Outreach [facility] [address] [place] [phone] Fran Bauer LICSW Care Coordination (iCMP Full Service Vending Driver Outreach); iCMP Care Plan Update (iCMP Care Plan Update) 10/21/2024 Patient Outreach [facility] [address] [place] [phone] Fran Bauer LICSW Care Coordination ([facility] Full Service Vending Driver Outreach); iCMP Care Plan Update (iCMP Care Plan Update) 10/14/2024 Patient Outreach [facility] [address] [place] [phone] Fran Bauer LICSW Care Coordination (iC[employer] Full Service Vending Driver Outreach); iCMP Care Plan Update (iCMP Care Plan Update) 09/30/2024 2:03 PM EDT - 09/30/2024 11:59 PM EDT Hospital Encounter [facility] [address] [place] [address] Geovany Aguirre MD Discharge Disposition: Home or Self Care 09/30/2024 Patient Outreach [facility] [address] [place] [phone] Fran Bauer LICSW Care Coordination ([facility] Full Service Vending Driver Outreach); iCMP Care Plan Update (iCMP Care Plan Update) 09/26/2024 4:30 PM EDT Office Visit [facility] [address] [place] [address] [place] [address] Geovany Aguirre MD Encounter for annual routine gynecological examination (Primary Dx); Screening for cervical cancer; Screening for STD (sexually transmitted disease) from Last 3 Months Immunizations Immunization Administration Dates Next Due Hepatitis B, unspecified formulation 06/03/2002, 01/01/2002,11/27/2001 INFLUENZA, SPLIT VIRUS, TRIVALENT PF 05/27/2014 Influenza Quadrivalent Prese rvative Free IM 01/17/2022,04/06/2021,01/20/2020,2017,01/26/2017 Rho (D) Immune Globulin 06/24/2020,04/07,11/14/2019,2018,03/26/2017,01/15/2017 Td, unspecified formulation 11/27/2001 Tdap 05/04/2020,02/23/2017,09/14/2010 Family History Medical History Relation Comments Crohn's disease Maternal Aunt Thyroid disease Maternal Aunt Diabetes Maternal Grandfather Thyroid disease Maternal Grandmother Hypertension Mother Relation Status Comments Brother Alive Daughter Alive Father Alive Maternal Aunt Maternal Grandfather Maternal Grandmother Mother Alive Sister Alive Son Alive Social History Tobacco Use Types Packs/Day Years Used Date Smoking Tobacco: Former Cigarettes Q uit: 03/2016 Smokeless Tobacco: Never Tobacco Cessation:Counseling Given: Not Answered Alcohol Use Standard Drinks/Week Comments Yes 1 (1 standard drink = 0.6 oz pure alcohol) Drinks 1 beer every once in a while. Education Answer Date Recorded Are you interested in more education? Not on lois e 08/11/2022 Are you concerned about learning? Not on file 08/11/2022 No 08/11/2022 No 08/11/2022 Digital Access Answer Date Recorded No 09/08/2022 No 09/08/2022 Reliable internet access at home? Not on file 09/08/2022 Device with a working camera? 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 Not on file Not on fi le Last Filed Vital Signs Vital Sign Reading Time Taken Comments Blood Pressure 118/76 09/26/2024 4:36 PM EDT Pulse 69 05/26/2021 12:31 PM EST Temperature 35.7 C (96.3 F) 05/26/2021 12:31 PM EST Respiratory Rate 20 05/26/2021 12:31 PM EST Oxygen Saturation 97% 05/26/2021 12:31 PM EST Inhaled Oxygen Concentration - - Weight 67.1 kg (148 lb) 09/26/2024 4:36 PM EDT Height 157.5 cm (5' 2 ) 09/26/2024 4:36 PM EDT Body Mass Index 27.07 09/26/2024 4:36 PM EDT Plan of Treatment Upcoming Encounters Date Type Department Care Team (Late st Contact Info) Description 03/20/2025 1:30 PM EST Office Visit [facility] Neurology [address] [place] [address] Eliezer Wood MD [address] [facility] [place] [address] [email or web address] Health Maintenance Due Date Last Done Comments SMOKING Hx and SMOKELESS TOBACCO SCREENING 2002 SCREENING FOR DIABETES 2024 05/26/2021, 2016 REPEAT PHQ 10/03/2024 09/02/2024, 09/02/2024 INFLUENZA VACCINE (#1) 2024 , 04/06/2021, 01/20/2020, Additional history exists COVID-19 VACCINE ( season) 2024 04/06/2021, 07/19/2020, 06/19/2020 PAP SMEAR 01/12/2025 01/12/2022, 04/05/2017, 07/16/2017, Additional history exists DEPRESSION SCREENING 09/02/2025 09/02/2024, 09/03/19 25 Adult Td,Tdap Booster 05/04/2030 05/04/2020 , 02/23/2017, 09/14/2010, Additional history exists HEPATITIS C SCREENING Completed 09/30/2024 , 12/23/2019, 12/23/2019 HIV ONE-TIME SCREENING (18-65 YEARS) Completed 09/30/2024 HEPATITIS A VACCINES Aged Out No long er eligible based on patient's age to complete this topic HIB VACCINES Aged Out No longer eligi ble based on patient's age to complete this topic MENINGOCOCCAL VACCINES (ACWY) Aged Out No longer eligible based on patient's age to complete this topic MENINGOCOCCAL VACCINES (B) Aged Out N o longer eligible based on patient's age to complete this topic PNEUMOCOCCAL VACCINES (0-49 years) Aged Out No longer eligible based on patient's age to complete this topic Medical Devices Not on file Procedures Procedure Name Priority Date/Time Associated Diagnosis Comments SYPHILIS ANTIBODY SCREEN ASSAY Routine 09/30/2024 2:27 PM EDT Screening for STD (sexually transmitted disease) HEPATITIS B SURFACE ANTIGEN Routine 09/30/2024 2:27 PM EDT Screening for STD (sexually transmitted disease) HEPATITIS C ANTIBODY, QUALITATIVE Routine 09/30/2024 2:27 PM EDT Screening for STD (sexually transmitted disease) HIV-1/2 ANTIGEN/ANTIBODY Routine 09/30/2024 2:27 PM EDT Screening for STD (sexually transmitted disease) HSV type 1,2, antibody, IgG Routine 09/30/2024 2:27 PM EDT Screening for STD (sexually transmitted disease) CHLAMYDIA TRACHOMATIS AND NEISSERIA GONORRHOEAE NUCLEIC ACID DETECTION Routine 09/26/2024 5:06 PM EDT Screening for STD (sexually transmitted disease) PAP TEST Routine 01/12/2022 12:00 AM EDT from Last 3 Months or Most Recently Relevant to Health Maintenance Results * HSV type 1,2, antibody, IgG (09/30/2024 2:27 PM EDT) Pathologist [facility] HSV 1 Ab, IgG Negative Negative [facility] HSV TYPE 2 AB, IGG Negative Negative [facility] [address] Blood 09/30/2024 2:27 PM EDT 09/30/2024 2:29 PM EDT Geovany Aguirre MD LAB BLOOD ORDERABLES Final Re sult [facility] [place] [address] * HIV-1/2 antigen/antibody (09/30/2024 2:27 PM EDT) Pathologist [facility] HIV-1/2 Antigen/Antibo dy NON-REACTI VE NON-REACTI VE [facility] Blood 09/30/2024 2:27 PM EDT 09/30/2024 2:29 PM EDT Geovany Aguirre MD LAB BLOOD ORDERABLES Final Re sult Performing Organization Address [facility]/ZIP Co de Phone Number [address] [address] * Hepatitis C antibody, qualitative (09/30/2024 2:27 PM EDT) Pathologist [facility] HCV NON-REACTIV E NON-REACTI VE [facility] Blood 09/30/2024 2:27 PM EDT 09/30/2024 2:28 PM EDT Geovany Aguirre MD LAB BLOOD ORDERABLES Final Re sult Performing Organization Address [facility]/ZIP Co de Phone Number [address] [address] * Syphilis antibody screen (09/30/2024 2:27 PM EDT) Pathologist [facility] RPR NON-REACTIV E NON-REACTI VE [facility] Blood 09/30/2024 2:27 PM EDT 09/30/2024 2:28 PM EDT Geovany Aguirre MD LAB BLOOD ORDERABLES Final Re sult Performing Organization Address City/[facility]/ZIP Co de Phone Number [address] [address] * Hepatitis B surface antigen (09/30/2024 2:27 PM EDT) HBV SURFACE ANTIGEN NON-REACTI VE NON-REACTI VE [facility] Blood 09/30/2024 2:27 PM EDT 09/30/2024 2:28 PM EDT Geovany Aguirre MD LAB BLOOD ORDERABLES Final Re sult Performing Organization Address [facility] Co de Phone Number [address] [address] * Chlamydia trachomatis and Neisseria gonorrhoeae Nucleic Acid Amplification (09/26/2024 5:06 PM EDT) CHLAMYDIA TRACHOMATIS Not Detected Not Detected [facility] NEISERIA GONORRHOEAE Not Detected Not Detected [facility] SPECIMEN TYPE ENDOCERVICAL TRACK LAYING SUPERVISOR [facility] Other (Endocervical) 09/26/2024 5:06 PM EDT 09/26/2024 6:17 PM EDT Geovany Aguirre MD NON CULTURE MICROBIOLOGY Sole l Result Performing Organization Address [facility]/ZIP Co de Phone Number [address] [address] * Pap Smear (01/12/2022 12:00 AM EDT) 01/12/2022 01/13/2022 9:1 1 AM EDT Narrative SEE NARRATIVE - 01/20/2022 10:32 AM EDT [address] [address] Cardroom Drawing Runner: Randee Dean MD MARINE SERVICE STATION ATTENDANT Cytology Report FINAL DIAGNOSIS A. PAP SMEAR (SUREPATH) CE: SPECIMEN ADEQUACY: Satisfactory for evaluation; transformation zone present. INTERPRETATION: NEGATIVE FOR INTRAEPITHELIAL LESION OR MALIGNANCY. Electronically Signed Out By: ELIU Weir(ASCP) The Pap test is a screening test primarily for squamous cancers and precursors and has associated false-negative and false-positive results. New technologies such as liquid-based preparations may decrease but will not eliminate all false-negative results. Regular sampling and follow-up of unexplained clinical signs and symptoms are recommended to minimize false negative results. PROCEDURES/ADDENDA HPV Testing (Requested) Ordered Date: 01/13/2022 A. PAP SMEAR (SUREPATH) CE: Human Papilloma Virus Test Negative for high-risk human papillomavirus types 16, 18, 45 and the Other high risk probe set (Includes 31, 33, 35, 39, 51, 52, 56, 58, 59, 66, 68) by [employer] HR-HPV analysis. Clinical correlation is advised. This HPV test was performed at [facility], [address] [place] [address]. This test has been FDA approved for SurePath cervical cytology specimens. The accuracy and precision of this test for all other specimen sources has been verified in the Cytopathology Laboratory of the [facility] and has not been cleared or approved by the U.S. Food and Drug Administration. Clinical correlation is advised. CLINICAL HISTORY Date of Last Menstrual Period: 12-23-2021 Other Clinical Conditions: Screening Pap SPECIMEN SOURCE A: PAP SMEAR (SUREPATH) CE Patient Name: BARBARA ARANA : 1990 (Age: 31) Sex: F Institution: [facility] Location: [facility] Date of Collection: 01/12/2022 Date of Reported: 01/20/2022 10:32 Results to: Caitlin Hidalgo MD us Caitlin Hidalgo MD CYTOLOGY ORDERABLES Final Res ult SEE NARRATIVE from Last 3 Months or Most Recently Relevant to Health Maintenance Insurance , [address] [address] [facility] , [address] [address] [facility] , [facility] [address] [place] [address] [facility] , [id number] [place] [address] ACO , [phone] [place], [place] [address] ACO , [address] [address] [facility] Advance Directives For more information, please contact: [phone] (9AM - 5PM [facility], Sunday-Sunday) Documents on File Type Date Recorded Patient Research Attorney Expl anation Healthcare Proxy 09/02/2024 12:55 PM [facility] Care Proxy - [place] * Full Code (Latest Code Status on File) Date Activated Date Inactivated Comments 06/23/2020 9:45 AM Question Answer Comments Code Status Confirmed With: Patient * Full Code Date Activated Date Inactivated Comments 06/23/2020 5:40 AM 06/23/2020 9:45 AM Question Answer Comments Code Status Confirmed With: Patient * Full Code Date Activated Date Inactivated Comments 02/17/2020 7:28 AM 06/23/2020 5:29 AM Question Answer Comments Code Status Confirmed With: Patient * Full Code (Presumed) Date Activated Date Inactivated Comments 11/28/2019 2:06 PM 02/17/2020 7:07 AM * Full Code (Presumed) Date Activated Date Inactivated Comments 04/11/2019 11:03 AM 04/11/2019 6:34 PM Healthcare Agents on File Name Relationship Healthcare Agent Relationship Communication Obdulia Salazaraire Mother .Primary Heal th Care Agent (Proxy form on file) Care Teams Food Demonstrator Relationship Specialty Start Date End Date Shukri Ramirez MD [email or web address] PCP - General Internal Medicine 02/27/17 Fran Bauer LICSW [address] [place] [id number] [email or web address] iCMP Social Work 08/25/24 Additional Source Comments The information contained in this document represents components of the legal health record. It is not the complete legal health record.[facility]
== END 2024-12-25 06:23 | disposition home or self-care (01) ==
LOC: CF 06:22
PROVIDERS: Visit Provider Internal Medicine
DX: Z13.89 Encounter for screening for other disorder (principal)

== ENCOUNTER 2024-12-25 12:07 | Outpatient (AMB) | payer OTHER, SELFPAY ==
[2024-12-25 12:13] VITALS: BP 127/59; PULSE 87; RESP 16; O2SAT 100; BMI 27.0
--- NOTE | 2024-12-25 12:13 | MHC.OFFVIS ---
Vital Signs 12/25/24 12:13 12/25/24 12:57 Height 5 ft 1 in Weight 143 lb BMI 27.0 BP 127/59 L 106/59 L Blood Pressure Location Lt brachial Lt brachial Position Sitting Sitting Respiration 16 16 Pulse 87 80 Pulse Source Pulse Oximeter Pulse Oximeter Pulse Oximetry (%) 100 100 Oxygen Delivery Method Room Air Room Air Intake Visit Reasons: Bilateral Diagnostic C5-C6-C7 MBB/ Ativan Physician Specialist Required: No Allergies Sulfa (Sulfonamide Antibiotics) Adverse Reaction (Severe, Verified 12/29/24 11:06) Rash Medication List - Last Reconciled 12/25/24 by Steffi Cedeno LPN albuterol sulfate 90 mcg/actuation (Ventolin HFA) inhalation uqkjnunkjc-tndfeqndxrmqc-hstt 50-325-40 mg 1 tab PO Q6H PRN dextroamphetamine-amphetamine 20 mg ER (Adderall XR) caps PO dextroamphetamine-amphetamine 30 mg ER (Adderall XR) 40 mg PO DAILY dextroamphetamine-amphetamine 5 mg (Adderall) 5 mg PO DAILY diclofenac sodium 1% (Arthritis Pain (diclofenac)) 4 grams topical QID PRN duloxetine 60 mg (2 x 30 mg) PO DAILY ferrous sulfate mg PO DAILY lidocaine 5% 1 patch topically 1 patch daily q 12 hours; leave on most painful area for up to 12 hrs lorazepam (Ativan) 1 mg PO ONCE lurasidone 40 mg PO DAILY magnesium oxide 400 mg PO DAILY meloxicam 15 mg PO DAILY methocarbamol 500 mg PO TID PRN 30 days propranolol ER 60 mg PO DAILY riboflavin (vitamin B2) 400 mg (4 x 100 mg) PO DAILY HPI HPI Bilateral Diagnostic C5-C6-C7 MBB/ Ativan: Details: Patient presents for scheduled procedure on the LEFT side. Denies any recent cough, cold, infection, fever or other significant changes in medical history since last office visit. PFSH Medical History Anemia Myofascial neck pain Cervicalgia Right shoulder pain Migraine headache with aura Tubal ectopic ADHD Surgical History History of carpal tunnel release (~2017) History of appendectomy History of Social History (Reviewed 09/15/25 @ 12:26 by SHIRA Garcia Household Members: Children Housing: Apartment Alcohol intake: current Alcohol intake frequency: 3 or more drinks per day Alcohol type: beer Tobacco use type: Cigarette Cigarette Packs Per Day: 0.5 Physical Exam Vital Signs: Last Vital Signs Pulse 80 12/25/24 12:57 Resp 16 12/25/24 12:57 BP 106/59 L 12/25/24 12:57 Pulse Ox 100 12/25/24 12:57 Oxygen Delivery Method Room Air 12/25/24 12:57 BMI result Body Mass Index 27.0 Office Procedures Cervical/Thoracic Facet Inj Details: Diagnostic Cervical Medial Branch Block, LEFT C4, C5, C6 medial branches After obtaining written consent, pre-procedure blood pressure and pulse were recorded and are in the nursing record for review. The patient was placed in a lateral position. The respective cervical area was prepped with chloraprep and draped in sterile fashion. The skin over the target medial branch nerves was anesthetized with 0.5% lidocaine. A 25 gauge 1.5 inch needle was inserted into the target medial branch nerve under fluoroscopic guidance. No paresthesias were elicited with needle placement and aspiration was negative for blood and CSF. Next, 0.2cc of omnipaque 180 was injected to verify positioning. Next 0.5 ml 0.5% bupivicaine was injected (0.5 cc total per level). The identical procedure was performed at the remaining levels. The skin was cleansed and a sterile bandage was applied. Following the procedure the patient's vital signs were stable. The patient tolerated the procedure well and no complications were encountered. Following the procedure the patient's vital signs were stable. The patient was discharged home in good condition with post-procedural instructions. Time Out: Immediately prior to the procedure, the following was verbally confirmed that there is a signed consent form and that the correct patient, planned procedure, site and side are consistent with documentation and that necessary equipment and/or blood products are available prior to the start of the case. Complications: none EBL: <5 cc 83355 - with Fluoroscopy 28095 - second level, with Fluoroscopy Procedure code (CPT) selection complete Assessment & Plan Assessment & Plan (1) Cervical spondylosis: Code(s): M47.812 - Spondylosis without myelopathy or radiculopathy, cervical region Category: Medical Plan Patient is status post left C4/5/6 diagnostic MBBs. Will return for the right sided as needed. Patient tolerated procedure well and was discharged home in stable condition with discharge instructions. All questions were answered. We will follow-up via telephone or in clinic to assess response to therapy. A follow-up appointment was made during today's visit. Orders: Orders FL guidance in treatment room 12/25/24 M47.812 - Spondylosis without myelopathy or radiculopathy, cervical region Medications: New lorazepam Take 30 minutes prior to arrival to procedure 1 mg PO ONCE 1 tab 0RF anxiety Coding Level of Care Code Procedure Only Diagnoses Cervical spondylosis M47.812 CPT Codes Facet Injection Cervical/Thoracic - CPT: 08980 - with Fluoroscopy ([id number]) Facet Injection Cervical/Thoracic - CPT: 03081 - second level, with Fluoroscopy ([id number])
[2024-12-25 12:57] VITALS: BP 106/59; PULSE 80; RESP 16; O2SAT 100
--- OUTSIDE RECORDS SUMMARY | 2024-12-25 16:20 | XMS_ITS | Encounter Summary ---
Author Organization [facility] Address [address] [place] [address] [place] [address] Phone Care Team Providers Care Religious Activities Director Name Role Phone Shukri Ramirez MD Primary Care Provider [phone] Shukri Ramirez MD Unavailable [phone] Fran Bauer B2B OUTSIDE SALES REPRESENTATIVE Unavailable [phone] Fran Bauer B2B OUTSIDE SALES REPRESENTATIVE Unavailable [phone] Encounter Details Date Type Department Care Team (Late st Contact Info) Description 01/13/2018 Procedure Pass [facility], Ct Scan - [address] [address] Social History Tobacco Use Types Packs/Day Years [...] 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 Not on file Not on lois e documented as of this encounter Plan of Treatment Upcoming Encounters Date Type Department Care Team (Late st Contact Info) Description 03/20/2025 1:30 PM EST Office Visit [facility] Neurology [address] [place] [address] Eliezer Wood MD 22 [facility], [address] [place] [address] [email or web address] documented as of this encounter Visit Diagnoses Not on filedocumented in this encounter Additional Health Concerns Infection Onset Date Last Indicated Resolved Time CoV-Risk 12/18/2019 12/19/2019 01/01/2020 1:24 AM EDT CoV-Risk 05/26/2021 05/26/2021 06/05/2021 1:23 AM EST documented as of this encounter Care Teams Religious Activities Director Relationship Specialty Start Date End Date Shukri Ramirez MD [email or web address] PCP - General Internal Medicine 02/27/17 Shukri Ramirez MD [address] [place] [address] Insurance Assigned Provider 08/18/17 12/23/22 Fran Bauer [address] [address] Alteration Worker 07/04/24 07/31/24 Fran Bauer [address] [address] iCMP Social Work 08/25/24 documented as of this encounter Additional Source Comments The information contained in this document represents components of the legal health record. It is not the complete legal health record.[facility]
--- OUTSIDE RECORDS SUMMARY | 2024-12-25 16:20 | XMS_ITS | Encounter Summary ---
Author Organization [facility] Address [address] [place] [address] Phone Care Team Providers Care Peer Tutor Name Role Phone Shukri Ramirez MD Primary Care Provider [phone] Shukri Ramirez MD Unavailable [phone] Fran Bauer WOOD SHOP TEACHER Unavailable [phone] Fran Bauer WOOD SHOP TEACHER Unavailable [phone] Encounter Details Date Type Department Care Team (Late Contact Info) Description 01/13/2018 Procedure Pass [place] Admitting Dept - Virtual Department [address] [place] [address] Social History Tobacco Use Types Packs/Day Years [...] 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 Not on file Not on lois e documented as of this encounter Plan of Treatment Upcoming Encounters Date Type Department Care Team (Late Contact Info) Description 03/20/2025 1:30 PM EST Office Visit [facility] Neurology [address] [place] [address] Eliezer Wood MD 22 [facility], [address]nd [place] [address] [email or web address] documented as of this encounter Visit Diagnoses Not on filedocumented in this encounter Additional Health Concerns Infection Onset Date Last Indicated Resolved Time CoV-Risk 12/18/2019 12/19/2019 01/01/2020 1:24 AM EDT CoV-Risk 05/26/2021 05/26/2021 06/05/2021 1:23 AM EST documented as of this encounter Care Teams Peer Tutor Relationship Specialty Start Date End Date Shukri Ramirez MD [email or web address] PCP - General Internal Medicine 02/27/17 Shukri Ramirez MD [address] [place] [address] [email or web address] Insurance Assigned Provider 08/18/17 12/23/22 Fran Bauer [address] [address] Urban Design Consultant 07/04/24 07/31/24 Fran Bauer [address] [address] iCMP Social Work 08/25/24 documented as of this encounter Additional Source Comments The information contained in this document represents components of the legal health record. It is not the complete legal health record.[facility]
--- OUTSIDE RECORDS SUMMARY | 2024-12-25 16:21 | XMS_ITS | Clinical Summary ---
Author Organization [facility] Address [address] [place] [address] Phone Care Team Providers Care Planogrammer Name Role Phone Shukri Ramirez MD Primary Care Provider [phone] Fran Bauer PANTS PRESSER AUTOMATIC Unavailable [phone] Allergies Active Allergy Reactions Criticality Noted [...] Active ferrous sulfate 325 mg (65 mg muckleshoot iron) tablet Take 325 mg by mouth [...] her children at her sister's place in [place]. Some of the children stay part-time at their father's house down the street. Patient is in process of screening for public family housing. Functional Status (ADL's/iADLs): Independent. Family/Social Supports: Identifies supportive sister, friend, and boyfriend. Goals of Care (HCP/Molst): Has HCP on file in [facility] and [facility]. Community Supports (e.g. VNA, DME Vendors, Elder Services): Sees psychiatric prescriber Ortiz Queen NP, at [facility]. Transportation: Friends and family provide help with rides. Medication Management System/Specialized Pharmacy Needs: Picks up and manages medications independently. 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 Has SNAP benefits. Other Supports [...] Requests on 10/31/[address] [facility] consent signed 05/04/2020 Assessment & Plan (02/11/2020 4:15 PM EDT): Will sign iiko papers at next visit. Supervision of other normal , antepartum 10/31/2019 08/03/2020 Overview (05/31/2020): MD Cantrell OB-CMI score has been filled out for this encounter. Rh NEG- rhogam at 7 weeks for bleeding and at 28 weeks RAP GC/Chlam neg PAP 07/2017 normal Tdap * Flu done Hgb 12.8 GTT 77 28 wk Repeat RPR not done GBS * PPBC TL [facility] signed 05/04/20 screening normal first trimester screen/AFP [...] a tubal at the same time in [facility] papers already been signed. Assessment & Plan [...] Department Care Team Description 12/18/[address] [facility] INTEGRATED CARE MANAGEMENT [address] [place] [address] Fran Bauer LICSW iCMP Care Plan Update (iCMP Care Plan Update) 12/03/2024 Patient Outreach [facility]TEGRATED C[facility] MANAGEMENT [address] [place] [address] Fran Bauer LICSW iCMP Care Plan Update (iCMP Care Plan Update); Care Coordination (iCMP Patch Machine Operator Outreach) 11/18/2024 Patient Outreach [facility]GRATED [facility] MANAGEMENT [address] [place] [address] Fran Bauer LICSW iCMP Care Plan Update (iCMP Care Plan Update); Care Coordination (iCMP Patch Machine Operator Outreach) 11/04/2024 Patient Outreach [facility]ATED [facility] MANAGEMENT [address] [place] [address] Fran Bauer LICSW iCMP Care Plan Update (iCMP Care Plan Update); Care Coordination (iCMP Patch Machine Operator Outreach) 10/28/2024 Patient Outreach [facility]GRATED [facility] MANAGEMENT [address] [place] [address] Fran Bauer LICSW Care Coordination (iCMP Patch Machine Operator Outreach); iCMP Care Plan Update (iCMP Care Plan Update) 10/21/2024 Patient Outreach [facility]TEGRATED C[facility] MANAGEMENT [address] [place] [address] Fran Bauer LICSW Care Coordination (iCMP Patch Machine Operator Outreach); iCMP Care Plan Update (iCMP Care Plan Update) 10/14/2024 Patient Outreach [facility]ATED [facility] MANAGEMENT [address] [place] [address] Fran Bauer LICSW Care Coordination (iCMP Patch Machine Operator Outreach); iCMP Care Plan Update (iCMP Care Plan Update) 09/30/2024 2:03 PM EDT - 09/30/2024 11:59 PM EDT Hospital Encounter [facility] [address] [place] [address] Geovany Aguirre MD Discharge Disposition: Home or Self Care 09/30/2024 Patient Outreach [facility] MANAGEMENT [address] [place] [address] Fran Bauer LICSW Care Coordination ([facility] Patch Machine Operator Outreach); iCMP Care Plan Update (iCMP Care Plan Update) 09/26/2024 4:30 PM EDT Office Visit [facility] [address] [place] [address] [place] [address] Geovany Aguirre MD Encounter for annual routine [...] 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 MED/PATH [address] Blood 09/30/2024 2:27 PM EDT 09/30/2024 2:29 PM EDT Geovany Aguirre MD LAB BLOOD ORDERABLES Final Re sult [facility] LAB MED/[address] [place] [address] * HIV-1/2 antigen/antibody (09/30/2024 2:27 PM EDT) Pathologist [facility] HIV-1/2 Antigen/Antibo dy NON-REACTI VE NON-REACTI VE [facility] Blood 09/30/2024 2:27 PM EDT 09/30/2024 2:29 PM EDT Geovany Aguirre MD LAB BLOOD ORDERABLES Final Re sult Performing Organization Address [facility]/ZIP Co de Phone Number [address] [address] * Hepatitis C antibody, qualitative (09/30/2024 2:27 PM EDT) Pathologist [facility] HCV NON-REACTIV E NON-REACTI VE [facility] Blood 09/30/2024 2:27 PM EDT 09/30/2024 2:28 PM EDT Geovany Aguirre MD LAB BLOOD ORDERABLES Final Re sult Performing Organization Address [facility]/ZIP Co de Phone Number [address] [address] * Syphilis antibody screen (09/30/2024 2:27 PM EDT) Pathologist [facility] RPR NON-REACTIV E NON-REACTI VE [facility] Blood 09/30/2024 2:27 PM EDT 09/30/2024 2:28 PM EDT Geovany Aguirre MD LAB BLOOD ORDERABLES Final Re sult Performing Organization Address City/[facility]/ZIP Co de Phone Number [address] [address] * Hepatitis B surface antigen (09/30/2024 2:27 PM EDT) HBV SURFACE ANTIGEN NON-REACTI VE NON-REACTI VE [facility] Blood 09/30/2024 2:27 PM EDT 09/30/2024 2:28 PM EDT Geovany Aguirre MD LAB BLOOD ORDERABLES Final Re sult Performing Organization Address [facility] Co de Phone Number [address] [address] * Chlamydia trachomatis and Neisseria gonorrhoeae Nucleic Acid Amplification (09/26/2024 5:06 PM EDT) CHLAMYDIA TRACHOMATIS Not Detected Not Detected [facility] NEISERIA GONORRHOEAE Not Detected Not Detected [facility] SPECIMEN TYPE ENDOCERVICAL TEACHER EDUCATION DIRECTOR [facility] Other (Endocervical) 09/26/2024 5:06 PM EDT 09/26/2024 6:17 PM EDT Geovany Aguirre MD NON CULTURE MICROBIOLOGY Sole l Result Performing Organization Address [facility]/ZIP Co de Phone Number [address] [address] * Pap Smear (01/12/2022 12:00 AM EDT) 01/12/2022 01/13/2022 9:1 1 AM EDT Narrative SEE NARRATIVE - 01/20/2022 10:32 AM EDT [address] [address] Director Of Dietary: Randee Dean MD ADVERTISING PROJECT MANAGER Cytology Report FINAL DIAGNOSIS A. PAP SMEAR [...] 52, 56, 58, 59, 66, 68) by [facility] HR-HPV analysis. Clinical correlation is advised. This HPV test was performed at [facility], [address] [place] [address]. This test has been FDA approved for [facility] cervical cytology specimens. The accuracy and precision of this test for all other specimen sources has been verified in the Cytopathology Laboratory of the [facility] and has not been cleared or approved by the U.S. Food and Drug Administration. Clinical correlation is advised. CLINICAL HISTORY Date of Last Menstrual Period: 12-23-2021 Other Clinical Conditions: Screening Pap SPECIMEN SOURCE A: PAP SMEAR (SUREPATH) CE Patient Name: BARBARA ARANA : 1990 (Age: 31) Sex: F Institution: [facility] Location: [facility] Date of Collection: 01/12/2022 Date of Reported: 01/20/2022 10:32 Results to: Caitlin Hidalgo MD us Caitlin Hidalgo MD CYTOLOGY ORDERABLES Final Res ult SEE NARRATIVE from Last 3 Months or Most Recently Relevant to Health Maintenance Insurance , [address] [address] [facility] , [address] [address] [facility] , [facility] [address] [place] [address] [facility] , [id number] [place] [address] ACO , [id number] [place], [place] [address]P ACO , [address] [address] [facility] Advance Directives For more information, please contact: [phone] (9AM - 5PM [facility], Sunday-Sunday) Documents on File Type Date Recorded Patient Space And Storage Clerk Expl anation Healthcare Proxy 09/02/2024 12:55 PM [facility] Proxy - [place] * Full Code [...] Agent (Proxy form on file) Care Teams Planogrammer Relationship Specialty Start Date End Date Shukri Ramirez MD [email or web address] PCP - General Internal Medicine 02/27/17 Fran Bauer LICSW [address] [place] [address] [email or web address] iCMP Social Work 08/25/24 Additional Source Comments The information contained in this document represents components of the legal health record. It is not the complete legal health record.[facility]
--- OUTSIDE RECORDS SUMMARY | 2024-12-25 16:21 | XMS_ITS | Encounter Summary ---
Author Organization [facility] Address [address] [place] [address] Phone Care Team Providers Care Quality Assurance Lead Name Role Phone Shukri Ramirez MD Primary Care Provider [phone] Edmundo Joseph MD Unavailable [phone] Shukri Ramirez MD Unavailable [phone] Fran Bauer PUBLIC RELATIONS STUDIES DIRECTOR Unavailable [phone] Fran Bauer Unavailable [phone] Encounter Details Date Type Department Care Team (Late Contact Info) Description 03/26/2017 Procedure Pass [facility] L[facility]D Procedures [address] [place] [address] Social History Tobacco Use Types Packs/Day Years [...] 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 on file Not on lois e documented as of this encounter Plan of Treatment Upcoming Encounters Date Type Department Care Team (Late st Contact Info) Description 03/20/2025 1:30 PM EST Office Visit [facility] Neurology [address] [place] [address] Eliezer Wood MD 22 [facility], 2nd [place] [address] [email or web address] documented as of this encounter Visit Diagnoses Not on filedocumented in this encounter Additional Health Concerns Infection Onset Date Last Indicated Resolved Time CoV-Risk 12/18/2019 12/19/2019 01/01/2020 1:24 AM EDT CoV-Risk 05/26/2021 05/26/2021 06/05/2021 1:23 AM EST documented as of this encounter Care Teams Quality Assurance Lead Relationship Specialty Start Date End Date Shukri Ramirez MD [email or web address] PCP - General Internal Medicine 02/27/17 Edmundo Joseph MD [address] [place] [address] [email or web address] Insurance Assigned Provider 07/14/17 08/18/17 Shukri Ramirez MD [address] [place] [address] [email or web address] Insurance Assigned Provider 08/18/17 12/23/22 Fran Bauer [address] [address] [email or web address] Mechanical Manufacturing Technician 07/04/24 07/31/24 Fran Bauer [address] [address] [email or web address] iCMP Social Work 08/25/24 documented as of this encounter Additional Source Comments The information contained in this document represents components of the legal health record. It is not the complete legal health record.[facility]
--- OUTSIDE RECORDS SUMMARY | 2024-12-25 16:21 | XMS_ITS | Encounter Summary ---
Author Organization [facility] Address [address] [place] [address] [place] [address] Phone Care Team Providers Care Silviculture Professor Name Role Phone Shukri Ramirez MD Primary Care Provider [phone] Shukri Ramirez MD Unavailable [phone] Fran Bauer MACHINE SETTER SUPERVISOR Unavailable [phone] Fran Bauer MACHINE SETTER SUPERVISOR Unavailable [phone] Encounter Details Date Type Department Care Team (Late st Contact Info) Description 06/23/2020 Procedure Pass [facility] L&D Procedures [address] [place] [address] Social History Tobacco Use Types Packs/Day Years [...] 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 Wish to be (Past 1 Month) No 06/23/2020 7:11 AM Trudi Preston RN 2. Non-Specific Active Suicidal Thoughts (Past 1 Month) No 06/23/2020 7:11 AM Trudi Preston RN 6. Suicidal Behavior (Lifetime) No 06/23/2020 7:11 AM Trudi Preston RN documented as of this encounter Plan of Treatment Upcoming Encounters Date Type Department Care Team (Late st Contact Info) Description 03/20/2025 1:30 PM EST Office Visit [facility] Neurology [address] [place] [phone] Eliezer Wood MD [address] [place] [address], [address] [place] [address] [email or web address] documented as of this encounter Visit Diagnoses Not on filedocumented in this encounter Additional Health Concerns Infection Onset Date Last Indicated Resolved Time CoV-Risk 05/26/2021 05/26/2021 06/05/2021 1:23 AM EST documented as of this encounter Care Teams Silviculture Professor Relationship Specialty Start Date End Date Shukri Ramirez MD PCP - General Internal Medicine 02/27/17 Shukri Ramirez MD [address] [place] [address] Insurance Assigned Provider 08/18/17 12/23/22 Fran Bauer LICSW [address] [place] [address] [email or web address] Furniture Finisher Helper 07/04/24 07/31/24 Fran Bauer, MACHINE SETTER SUPERVISOR [address] [place] [address] [facility] 08/25/24 documented as of this encounter Additional Source Comments The information contained in this document represents components of the legal health record. It is not the complete legal health record.[facility]
--- OUTSIDE RECORDS SUMMARY | 2024-12-25 16:21 | XMS_ITS | Encounter Summary ---
Author Organization [facility] Address [address] [place] [address] Phone Care Team Providers Care Benefits Representative Name Role Phone Shukri Ramirez MD Primary Care Provider [phone] Shukri Ramirez MD Unavailable [phone] Fran Bauer INFORMATION TECHNOLOGY ASSISTANT Unavailable [phone] Fran Bauer INFORMATION TECHNOLOGY ASSISTANT Unavailable [phone] Encounter Details Date Type Department Care Team (Late Contact Info) Description 04/11/2019 Procedure Pass [place] Admitting Dept - Virtual Department [address] [place] [phone] Social History Tobacco Use Types Packs/Day Years [...] 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 Not on file Not on file Not on lois e documented as of this encounter Plan of Treatment Upcoming Encounters Date Type Department Care Team (Late Contact Info) Description 03/20/2025 1:30 PM EST Office Visit [facility] Neurology [address] [place] [address] Eliezer Wood MD 22 [facility], [address] [place] [address] [email or web address] documented as of this encounter Visit Diagnoses Not on filedocumented in this encounter Additional Health Concerns Infection Onset Date Last Indicated Resolved Time CoV-Risk 12/18/2019 12/19/2019 01/01/2020 1:24 AM EDT CoV-Risk 05/26/2021 05/26/2021 06/05/2021 1:23 AM EST documented as of this encounter Care Teams Benefits Representative Relationship Specialty Start Date End Date Shukri Ramirez MD [email or web address] PCP - General Internal Medicine 02/27/17 Shukri Ramirez MD [address] [place] [address] [email or web address] Insurance Assigned Provider 08/18/17 12/23/22 Fran Bauer [address] [address] Rn Office 07/04/24 07/31/24 Fran Bauer [address] [address] [employer] Social Work 08/25/24 documented as of this encounter Additional Source Comments The information contained in this document represents components of the legal health record. It is not the complete legal health record.[facility]
== END 2024-12-25 13:01 | disposition home or self-care (01) ==
LOC: HO.PMCPRC 12:07
PROVIDERS: PCP Nurse Practitioner Family; Visit Provider Internal Medicine
DX: M47.812 Spondylosis without myelopathy or radiculopathy, cervical region (principal)
CPT/HCPCS: 64490; 64491

== ENCOUNTER 2024-12-29 10:59 | Outpatient (AMB) | payer OTHER, SELFPAY ==
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
[2024-12-29 11:05] VITALS: BP 136/71; PULSE 86; O2SAT 96; BMI 28.2
--- OUTSIDE RECORDS SUMMARY | 2024-12-29 14:44 | XMS_ITS | Encounter Summary ---
Author Organization [facility] Address [address] [place] [address] Phone Care Team Providers Care Engineering Surveyor Name Role Phone Shukri Ramirez MD Primary Care Provider [phone] Edmundo Joseph MD Unavailable [phone] Shukri Ramirez MD Unavailable [phone] Fran Bauer MACHINE PECAN GATHERER Unavailable [phone] Fran Bauer Unavailable [phone] Encounter Details Date Type Department Care Team (Late Contact Info) Description 03/26/2017 Procedure Pass [facility] L&D Procedures [address] [place] [address] Social History Tobacco Use Types Packs/Day Years [...] Industry Job Start Date Job End Date [employer]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 documented as of this encounter Visit Diagnoses Not on filedocumented in this encounter Additional Health Concerns Infection Onset Date Last Indicated Resolved Time CoV-Risk 12/18/2019 12/19/2019 01/01/2020 1:24 AM EDT CoV-Risk 05/26/2021 05/26/2021 06/05/2021 1:23 AM EST documented as of this encounter Care Teams Engineering Surveyor Relationship Specialty Start Date End Date Shukri Ramirez MD [email or web address] PCP - General Internal Medicine 02/27/17 Edmundo Joseph MD [address] [place] [address] [email or web address] Insurance Assigned Provider 07/14/17 08/18/17 Shukri Ramirez MD [address] [place] [phone] [email or web address] Insurance Assigned Provider 08/18/17 12/23/22 Fran Bauer [address] [address] [email or web address] Shoe Handler 07/04/24 07/31/24 Fran Bauer [address] [address] [email or web address] Social Work 08/25/24 documented as of this encounter Additional Source Comments The information contained in this document represents components of the legal health record. It is not the complete legal health record.[facility]
--- OUTSIDE RECORDS SUMMARY | 2024-12-29 14:44 | XMS_ITS | Clinical Summary ---
Author Organization [facility] Address [address] [place] [address] Phone Care Team Providers Care Order Taker Name Role Phone Shukri Ramirez MD Primary Care Provider [phone] Fran Bauer THERAPEUTIC ACTIVITIES SERVICES WORKER Unavailable [phone] Allergies Active Allergy Reactions Criticality Noted [...] Active ferrous sulfate 325 mg (65 mg igiugig iron) tablet Take 325 mg by mouth [...] her children at her sister's place in [place]. Some of the children stay part-time at their father's house down the street. Patient is in process of screening for public family housing. Functional Status (ADL's/iADLs): Independent. Family/Social Supports: Identifies supportive sister, friend, and boyfriend. Goals of Care (HCP/Molst): Has HCP on file in [employer] and [employer]. Community Supports (e.g. VNA, DME Vendors, Elder Services): Sees psychiatric prescriber Ortiz Queen NP, at [facility]. Transportation: Friends and family provide help with rides. Medication Management System/Specialized Pharmacy Needs: Picks up and manages medications independently. Financial Concerns: Currently [employer] worker's compensation benefits. Has SNAP benefits. Other [...] Requests on 10/31/19 for tubal ligation with [facility] consent signed 05/04/2020 Assessment & Plan (02/11/2020 4:15 PM EDT): Will sign [employer] papers at next visit. Supervision of other normal , antepartum 10/31/2019 08/03/2020 Overview (05/31/2020): MD Cantrell OB-CMI score has been filled out for this encounter. Rh NEG- rhogam at 7 weeks for bleeding and at 28 weeks RAP GC/Chlam neg PAP 07/2017 normal Tdap * Flu done Hgb 12.8 GTT 77 28 wk Repeat RPR not done GBS * PPBC TL [facility] signed 05/04/20 screening normal first trimester screen/AFP [...] a tubal at the same time in [facility] papers already been signed. Assessment & Plan [...] Department Care Team Description 12/18/[address] [facility] INTEGRATED CARE MANAGEMENT [address] [place] [address] Fran Bauer LICSW iCMP Care Plan Update (iCMP Care Plan Update) 12/03/2024 Patient Outreach [facility] MANA[facility] [address] [place] [phone] Fran Bauer LICSW iCMP Care Plan Update (iCMP Care Plan Update); Care Coordination (iCMP Reducer Outreach) 11/18/2024 Patient Outreach [facility] MANAG[facility] [address] [place] [phone] Fran Bauer LICSW iCMP Care Plan Update (iCMP Care Plan Update); Care Coordination (iCMP Reducer Outreach) 11/04/2024 Patient Outreach [facility]ATED [facility] MANAGEMENT [address] [place] [phone] Fran Bauer LICSW iCMP Care Plan Update (iCMP Care Plan Update); Care Coordination (iCMP Reducer Outreach) 10/28/2024 Patient Outreach [facility]ATED [facility] MANAGEMENT [address] [place] [address] Fran Bauer LICSW Care Coordination (iCMP Reducer Outreach); iCMP Care Plan Update (iCMP Care Plan Update) 10/21/2024 Patient Outreach [facility] MANAG[facility] [address] [place] [phone] Fran Bauer LICSW Care Coordination (iCMP Reducer Outreach); iCMP Care Plan Update (iCMP Care Plan Update) 10/14/2024 Patient Outreach [facility] MANAGEMENT [address] [place] [address] Fran Bauer LICSW [facility] iCMP Care Plan Update (iCMP Care Plan Update) 09/30/2024 2:03 PM EDT - 09/30/2024 11:59 PM EDT Hospital Encounter [facility] [address] [place] [address] Geovany Aguirre MD Discharge Disposition: Home or Self Care 09/30/2024 Patient Outreach [facility]NAG[facility] [address] [place] [address] Fran Bauer LICSW Care Coordination ([facility] Reducer Outreach); iCMP Care Plan Update (iCMP Care Plan Update) from Last 3 Months Immunizations Immunization Administration [...] 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 Not on file [...] Description 03/20/2025 1:30 PM EST Office Visit [facility] Neurology [address] [place] [address] Eliezer Wood MD 22 [facility], [address]nd [place] [address] Health Maintenance Due Date Last Done Comments SMOKING Hx and SMOKELESS TOBACCO SCREENING 2002 SCREENING FOR DIABETES 2024 05/26/2021, 2016 REPEAT PHQ 10/03/2024 09/02/2024, 09/02/2024 INFLUENZA VACCINE (#1) 2024 , 04/06/2021, 01/20/2020, Additional history exists COVID-19 VACCINE ( season) 2024 04/06/2021, 07/19/2020, 06/19/2020 PAP SMEAR 01/12/2025 01/12/2022, 04/0 05/2017, 07/16/2017, Additional history exists DEPRESSION SCREENING 09/02/2025 [...] 1,2, antibody, IgG (09/30/2024 2:27 PM EDT) HSV 1 Ab, IgG Negative Negative [facility] HSV TYPE 2 AB, IGG Negative Negative [facility] Blood 09/30/2024 2:27 PM EDT 09/30/2024 2:29 PM EDT Geovany Aguirre MD LAB BLOOD ORDERABLES Final [facility] [address] [place] [address] * HIV-1/2 antigen/antibody (09/30/2024 2:27 PM EDT) Pathologist [facility] HIV-1/2 Antigen/Antibo dy NON-REACTI VE NON-REACTI VE [facility] Blood 09/30/2024 2:27 PM EDT 09/30/2024 2:29 PM EDT Geovany Aguirre MD LAB BLOOD ORDERABLES Final Re sult Performing Organization Address [facility] Co de Phone Number [address] [address] * Hepatitis C antibody, qualitative (09/30/2024 2:27 PM EDT) Pathologist [facility] HCV NON-REACTIV E NON-REACTI VE [facility] Blood 09/30/2024 2:27 PM EDT 09/30/2024 2:28 PM EDT Geovany Aguirre MD LAB BLOOD ORDERABLES Final Re sult Performing Organization Address [facility]/ZIP Co de Phone Number [address] [address] * Syphilis antibody screen (09/30/2024 2:27 PM EDT) Pathologist [facility] RPR NON-REACTIV E NON-REACTI VE [facility] Blood 09/30/2024 2:27 PM EDT 09/30/2024 2:28 PM EDT Geovany Aguirre MD LAB BLOOD ORDERABLES Final Re sult Performing Organization Address [facility]/ZIP Co de Phone Number [address] [address] * Hepatitis B surface antigen (09/30/2024 2:27 PM EDT) HBV SURFACE ANTIGEN NON-REACTI VE NON-REACTI VE [facility] Blood 09/30/2024 2:27 PM EDT 09/30/2024 2:28 PM EDT Geovany Aguirre MD LAB BLOOD ORDERABLES Final Re sult [address] [address] * Pap Smear (01/12/2022 12:00 AM EDT) 01/12/2022 01/13/2022 9:1 1 AM EDT Narrative SEE NARRATIVE - 01/20/2022 10:32 AM EDT [address] [address] Customer Engagement Manager: Randee Dean MD LEAD INSTRUCTOR/FLIGHT ATTENDANT Cytology Report FINAL DIAGNOSIS A. PAP [...] 52, 56, 58, 59, 66, 68) by Interview Master Onclarity HR-HPV analysis. Clinical correlation is advised. This HPV test was performed at [facility], [address] [place] [address]. This test has been FDA approved for SurePath cervical cytology specimens. The accuracy and precision of this test for all other specimen sources has been verified in the Cytopathology Laboratory of the [facility] and has not been cleared or approved by the U.S. Food and Drug Administration. Clinical correlation is advised. CLINICAL HISTORY Date of Last Menstrual Period: 12-23-2021 Other Clinical Conditions: Screening Pap SPECIMEN SOURCE A: PAP SMEAR (SUREPATH) CE Patient Name: BARBARA ARANA : 1990 (Age: 31) Sex: F Institution: [facility] Location: [facility] Date of Collection: 01/12/2022 Date of Reported: 01/20/2022 10:32 Results to: Caitlin Hidalgo MD Caitlin Hidalgo MD CYTOLOGY ORDERABLES Final Res ult SEE NARRATIVE from Last 3 Months or Most Recently Relevant to Health Maintenance Insurance , [address] [place], [place] [id number] [place] [address] [place] [address] , [address] [place], [place] [id number] [place] [address] [facility] ACO [facility] ACO [facility] ACO , [address] [place] [address] Advance Directives For more information, please contact: [phone] (9AM - 5PM [place], Sunday-Sunday) Documents on File Type Date Recorded Patient Scientific Technical Writer Expl anation Healthcare Proxy 09/02/2024 12:55 PM [facility] Proxy - [place] * Full Code (Latest [...] Name Relationship Healthcare Agent Relationship Communication Obdulia Nava .Primary Heal th Care Agent (Proxy form on file) Care Teams Order Taker Relationship Specialty Start Date End Date Shukri Ramirez MD PCP - General Internal Medicine 02/27/17 Fran Bauer, [address] [address] iCMP Social Work 08/25/24 Additional Source Comments The information contained in this document represents components of the legal health record. It is not the complete legal health record.[facility]
--- OUTSIDE RECORDS SUMMARY | 2024-12-29 14:44 | XMS_ITS | Encounter Summary ---
Author Organization [facility] Address [address] [place] [address] [place] [address] Phone Care Team Providers Care Meat Processing Center Manager Name Role Phone Shukri Ramirez MD Primary Care Provider [phone] Shukri Ramirez MD Unavailable [phone] Fran Bauer GRAB OPERATOR Unavailable [phone] Fran Bauer GRAB OPERATOR Unavailable [phone] Encounter Details Date Type Department Care Team (Late st Contact Info) Description 06/23/2020 Procedure Pass [facility] L[facility]D Procedures [address] [place] [address] Social History Tobacco Use Types Packs/Day Years [...] Industry 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 Not on file Not on fi le documented as of this encounter Functional Status * Calculated C-SSRS Risk Score (Lifetime/Recent) Answer Date of Assessment Author No Risk Indicated 06/23/2020 7:11 AM Trudi Preston RN * [place] Suicide Severity Rating Scale (Screener/Recent Self-Report) Question [...] Description 03/20/2025 1:30 PM EST Office Visit [facility] Neurology [address] [place] [address] Eliezer Wood MD [address] [place] [address], [address] [place] [address] [email or web address] documented as of this encounter Visit Diagnoses Not on filedocumented in this encounter Additional Health Concerns Infection Onset Date Last Indicated Resolved Time CoV-Risk 05/26/2021 05/26/2021 06/05/2021 1:23 AM EST documented as of this encounter Care Teams Meat Processing Center Manager Relationship Specialty Start Date End Date Shukri Ramirez MD PCP - General Internal Medicine 02/27/17 Shukri Ramirez MD [address] [place] [address] Insurance Assigned Provider 08/18/17 12/23/22 Fran Bauer LICSW [address] [place] [address] [email or web address] Revenue Accounting Manager 07/04/24 07/31/24 Fran Bauer, GRAB OPERATOR [address] [place] [address] [facility] 08/25/24 documented as of this encounter Additional Source Comments The information contained in this document represents components of the legal health record. It is not the complete legal health record.[facility]
--- OUTSIDE RECORDS SUMMARY | 2024-12-29 14:44 | XMS_ITS | Encounter Summary ---
Author Organization [facility] Address [address] [place] [address] [place] [address] Phone Care Team Providers Care Delinquency Counselor Name Role Phone Shukri Ramirez MD Primary Care Provider [phone] Shukri Ramirez MD Unavailable [phone] Fran Bauer ANIMAL STICKER Unavailable [phone] Fran Bauer ANIMAL STICKER Unavailable [phone] Encounter Details Date Type Department Care Team (Late st Contact Info) Description 01/13/2018 Procedure Pass [facility], Ct Scan - [address] [address] Social History Tobacco Use Types Packs/Day Years [...] 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 on file Not on lois e documented as of this encounter Plan of Treatment Upcoming Encounters Date Type Department Care Team (Late st Contact Info) Description 03/20/2025 1:30 PM EST Office Visit [facility] Neurology [address] [place] [address] Eliezer Wood MD 22 [facility], [address] [place] [address] [email or web address] documented as of this encounter Visit Diagnoses Not on filedocumented in this encounter Additional Health Concerns Infection Onset Date Last Indicated Resolved Time CoV-Risk 12/18/2019 12/19/2019 01/01/2020 1:24 AM EDT CoV-Risk 05/26/2021 05/26/2021 06/05/2021 1:23 AM EST documented as of this encounter Care Teams Delinquency Counselor Relationship Specialty Start Date End Date Shukri Ramirez MD [email or web address] PCP - General Internal Medicine 02/27/17 Shukri Ramirez MD [address] [place] [address] Insurance Assigned Provider 08/18/17 12/23/22 Fran Bauer [address] [address] Student Ministries Director 07/04/24 07/31/24 Fran Bauer [address] [address] iCMP Social Work 08/25/24 documented as of this encounter Additional Source Comments The information contained in this document represents components of the legal health record. It is not the complete legal health record.[facility]
--- OUTSIDE RECORDS SUMMARY | 2024-12-29 14:44 | XMS_ITS | Encounter Summary ---
Author Organization [facility] Address [address] [place] [address] Phone Care Team Providers Care Home Staging Specialist Name Role Phone Shukri Ramirez MD Primary Care Provider [phone] Shukri Ramirez MD Unavailable [phone] Fran Bauer VOCATIONAL NURSE LVN Unavailable [phone] Fran Bauer VOCATIONAL NURSE LVN Unavailable [phone] Encounter Details Date Type Department Care Team (Late Contact Info) Description 04/11/2019 Procedure Pass [place] Admitting Dept - Virtual Department [address] [place] [address] Social History Tobacco Use Types Packs/Day Years [...] 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 Not on lois e documented as of this encounter Plan of Treatment Upcoming Encounters Date Type Department Care Team (Late Contact Info) Description 03/20/2025 1:30 PM EST Office Visit [facility] Neurology [address] [place] [address] Eliezer Wood MD 22 [facility], [address] [place] [address] [email or web address] documented as of this encounter Visit Diagnoses Not on filedocumented in this encounter Additional Health Concerns Infection Onset Date Last Indicated Resolved Time CoV-Risk 12/18/2019 12/19/2019 01/01/2020 1:24 AM EDT CoV-Risk 05/26/2021 05/26/2021 06/05/2021 1:23 AM EST documented as of this encounter Care Teams Home Staging Specialist Relationship Specialty Start Date End Date Shukri Ramirez MD [email or web address] PCP - General Internal Medicine 02/27/17 Shukri Ramirez MD [address] [place] [address] [email or web address] Insurance Assigned Provider 08/18/17 12/23/22 Fran Bauer [address] [address] Water Resource Engineer 07/04/24 07/31/24 Fran Bauer [address] [address] iCMP Social Work 08/25/24 documented as of this encounter Additional Source Comments The information contained in this document represents components of the legal health record. It is not the complete legal health record.[facility]
--- OUTSIDE RECORDS SUMMARY | 2024-12-29 14:44 | XMS_ITS | Encounter Summary ---
Author Organization [facility] Address [address] [place] [address] Phone Care Team Providers Care Crawler Crane Operator Name Role Phone Shukri Ramirez MD Primary Care Provider [phone] Shukri Ramirez MD Unavailable [phone] Fran Bauer RN ANTE PARTUM Unavailable [phone] Fran Bauer RN ANTE PARTUM Unavailable [phone] Encounter Details Date Type Department Care Team (Late Contact Info) Description 01/13/2018 Procedure Pass [place] Admitting Dept - Virtual Department [address] [place] [address] Social History Tobacco Use Types Packs/Day Years [...] 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 Not on lois e documented as of this encounter Plan of Treatment Upcoming Encounters Date Type Department Care Team (Late Contact Info) Description 03/20/2025 1:30 PM EST Office Visit [facility] Neurology [address] [place] [address] Eliezer Wood MD 22 [facility], [address] [place] [address] [email or web address] documented as of this encounter Visit Diagnoses Not on filedocumented in this encounter Additional Health Concerns Infection Onset Date Last Indicated Resolved Time CoV-Risk 12/18/2019 12/19/2019 01/01/2020 1:24 AM EDT CoV-Risk 05/26/2021 05/26/2021 06/05/2021 1:23 AM EST documented as of this encounter Care Teams Crawler Crane Operator Relationship Specialty Start Date End Date Shukri Ramirez MD [email or web address] PCP - General Internal Medicine 02/27/17 Shukri Ramirez MD [address] [place] [address] [email or web address] Insurance Assigned Provider 08/18/17 12/23/22 Fran Bauer [address] [address] Automation Application Engineer 07/04/24 07/31/24 Fran Bauer [address] [address] iCMP Social Work 08/25/24 documented as of this encounter Additional Source Comments The information contained in this document represents components of the legal health record. It is not the complete legal health record.[facility]
== END 2024-12-29 11:50 | disposition home or self-care (01) ==
LOC: HO.PMC 11:00
PROVIDERS: PCP Nurse Practitioner Family; Visit Provider Nurse Practitioner Family
DX: M47.812 Spondylosis without myelopathy or radiculopathy, cervical region (principal); G44.86 Cervicogenic headache; M50.20 Other cervical disc displacement, unspecified cervical region
CPT/HCPCS: 99214; G2211

== ENCOUNTER → 2024-12-29 10:59 | Outpatient (BNVA) | payer OTHER, SELFPAY | PROVIDERS: PCP Nurse Practitioner Family; Visit Provider Nurse Practitioner Family | DX: M54.2 Cervicalgia (principal); M47.812 Spondylosis without myelopathy or radiculopathy, cervical region; G44.86 Cervicogenic headache | CPT/HCPCS: 99212 ==

== ENCOUNTER → 2025-01-08 11:04 | Outpatient (BNVA) | payer OTHER, SELFPAY | PROVIDERS: Visit Provider Physician Assistant Medical | DX: S00.93XD Contusion of unspecified part of head, subsequent encounter (principal); M54.2 Cervicalgia; S46.811D Strain of other muscles, fascia and tendons at shoulder and upper arm level, right arm, subsequent encounter; W51.XXXD Accidental striking against or bumped into by another person, subsequent encounter | CPT/HCPCS: 99213 ==

== ENCOUNTER → 2025-02-19 09:51 | Outpatient (BNVA) | payer OTHER, SELFPAY | PROVIDERS: Visit Provider Physician Assistant Medical | DX: S00.93XD Contusion of unspecified part of head, subsequent encounter (principal); S46.811D Strain of other muscles, fascia and tendons at shoulder and upper arm level, right arm, subsequent encounter; W51.XXXD Accidental striking against or bumped into by another person, subsequent encounter; M54.2 Cervicalgia | CPT/HCPCS: 99213 ==

== ENCOUNTER → 2025-04-02 09:43 | Outpatient (BNVA) | payer OTHER, SELFPAY | PROVIDERS: Visit Provider Physician Assistant Medical | DX: Z87.820 Personal history of traumatic brain injury (principal); R42 Dizziness and giddiness; S46.811D Strain of other muscles, fascia and tendons at shoulder and upper arm level, right arm, subsequent encounter; Y04.2XXD Assault by strike against or bumped into by another person, subsequent encounter | CPT/HCPCS: 99213 ==